=== PATIENT | female | born 1970 | race Caucasian/White ===

== ENCOUNTER 2023-11-02 21:43 | Emergency (ER) | payer OTHER, SELFPAY ==
[2023-11-02 22:08] VITALS: BP 199/126; PULSE 106; RESP 20; TEMP 36.8; O2SAT 99; BMI 30.2
--- NOTE | 2023-11-02 22:20 | ECG_ITS ---
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
[2023-11-02 22:24] VITALS: BP 182/90; PULSE 92; RESP 16; O2SAT 99
[2023-11-02 22:44] LABS: Basophils Absolute Auto 0.1 10^3/uL (0.0-0.1); Basophils Percent Auto 1.5 % (0.2-2.0); Eosinophils Absolute Auto 0.3 10^3/uL (0.0-0.7); Eosinophils Percent Auto 5.8 % (0.9-7.0); Hematocrit 43.2 % (36.0-48.0); Hemoglobin 14.4 g/dL (12.0-16.0); Immature Granulocytes Abs Auto 0.01 10^3/uL (0.00-0.03); Immature Granulocytes Pct Auto 0.2 % (0.0-0.5); Lymphocytes Absolute Auto 2.3 10^3/uL (1.2-3.8); Lymphocytes Percent Auto 39.1 % (20.5-60.0); Mean Corpuscular HGB Conc 33.3 g/dL (29.9-35.2); Mean Corpuscular Hemoglobin 30.5 pg (26.7-34.0); Mean Corpuscular Volume 91.5 fL (81.0-99.0); Monocytes Absolute Auto 0.4 10^3/uL (0.3-0.8); Neutrophils Absolute Auto 2.8 10^3/uL (1.4-6.5); Neutrophils Percent Auto 47.4 % (43.0-75.0); Platelet Count 303 10^3/uL (150-450); Red Blood Count 4.72 10^6/uL (4.20-5.40); Red Cell Distribution Width 12.6 % (11.0-15.0); White Blood Count 5.9 10^3/uL (4.0-11.0)
[2023-11-02] MEDS: LABETALOL HCL 20 MG/4 ML SYRINGE IVP (22:49)
[2023-11-02 22:51] LABS: Anion Gap 12.4; BUN Creatinine Ratio 19.6; Calcium 9.5 mg/dL (8.5-10.1); Carbon Dioxide 27.2 mmol/L (21.0-32.0); Chloride 102 mmol/L (98-107); Estimated GFR (African America >60 (>=60); Estimated GFR (Non-African Ame >60 (>=60); Glucose 105 mg/dL (74-106); Potassium 3.6 mmol/L (3.5-5.1); Sodium 138 mmol/L (136-145)
[2023-11-02 23:01] VITALS: BP 128/96; PULSE 79; RESP 19; O2SAT 96
[2023-11-02 23:23] VITALS: BP 133/87; PULSE 80; RESP 16
[2023-11-02 23:40] VITALS: BP 135/88; PULSE 79; RESP 14; O2SAT 97
--- NOTE | 2023-11-02 23:41 | ED.GENADUL1 ---
HPI - General Adult General Chief complaint: Headache Stated complaint: Hypertension Time Seen by Provider: 11/02/23 22:00 Source: patient Mode of arrival: walk-in Limitations: no limitations History of Present Illness HPI narrative: Over the last 2 weeks, the patient has been checking her BP at home and been getting high readings. She said that she started checking her BP at home because I just wasn't feeling right . She could not specify but mentioned that when her ZAINAB was found to be much more elevated tonight, she became very anxious and that seemed to make the BP rise even more. She does not take any prescribed meds so this would be new onset hypertension. She takes vitamin D and fish oil and asked me fi she should continue to take those. In our ED her BP is high and she still feels like something is off . Related Data Previous Rx's Medication Instructions Recorded lisinopril 10 mg tablet 10 mg PO DAILY #30 tabs 11/02/23 Allergies Allergy/AdvReac Type Severity Reaction Status Date / Time No Known Drug Allergies Allergy Verified 11/02/23 22:08 Exam Narrative Exam Narrative: Nurses notes and vital signs reviewed and patient is not hypoxic. Afebrile General: Well-appearing and in no apparent distress. Skin: Warm, dry, no pallor noted. Eye: Pupils are equal, round and EOMI. No scleral icterus. Cardiovascular: Regular Rate and Rhythm without murmur, gallop or rub. Respiratory: No accessory muscle use or respiratory distress. Lungs are clear to auscultation, no wheezing, rales or rhonchi Musculoskeletal: normal ROM, no calf or popliteal tenderness, no lower extremity edema/swelling Neurological: A&O x4. No cranial nerve dysfunction observed. No truncal ataxia. Moves all extremities. Sensation intact. Psychiatric: Cooperative and interactive. Normal mood and affect. Constitutional Vital Signs, click to edit/add: Last Vital Signs Temp 98.3 F 11/02/23 22:08 Pulse 79 11/02/23 23:40 Resp 14 11/02/23 23:40 BP 135/88 11/02/23 23:40 Pulse Ox 97 11/02/23 23:40 O2 Del Method Room Air 11/02/23 23:40 Course Vital Signs Vital signs: Vital Signs Temperature 98.3 F 11/02/23 22:08 Pulse Rate 106 H 11/02/23 22:08 Respiratory Rate 20 03/16/24 22:08 Blood Pressure 199/126 H 11/02/23 22:08 Pulse Oximetry 99 11/02/23 22:08 Oxygen Delivery Method Room Air 11/02/23 22:08 Temperature 98.3 F 11/02/23 22:08 Pulse Rate 79 11/02/23 23:40 Respiratory Rate 14 11/02/23 23:40 Blood Pressure 135/88 11/02/23 23:40 Pulse Oximetry 97 11/02/23 23:40 Oxygen Delivery Method Room Air 11/02/23 23:40 Medical Decision Making MDM Narrative Medical decision making narrative: Patient was placed on threat monitoring analyst and EKG obtained. Blood drawn and sent for evaluation. She was given IV labetalol for her hypertension. Blood pressure normalized after emergency department treatment. Aside from mildly elevated BUN, the patient's blood tests were unremarkable. EKG was normal. Patient was discharged home with prescription for lisinopril as she has noted hypertension for the last couple of weeks Patient courage to follow-up with her primary care provider for recheck. Emergency department return for any development of worrisome symptoms. I explained to her that over the next couple of weeks her blood pressure may continue to be labile and discouraged her from checking on a regular basis. Lab Data Lab results reviewed: Yes I reviewed the patient's lab results Labs: Lab Results 11/02/23 Range/Units 22:35 WBC 5.9 (4.0-11.0) 10^3/uL RBC 4.72 (4.20-5.40) 10^6/uL Hgb 14.4 (12.0-16.0) g/dL Hct 43.2 (36.0-48.0) % MCV 91.5 (81.0-99.0) fL MCH 30.5 (26.7-34.0) pg MCHC 33.3 (29.9-35.2) g/dL RDW 12.6 (11.0-15.0) % Plt Count 303 (150-450) 10^3/uL MPV 10.0 (9.5-13.5) fL Neut % (Auto) 47.4 (43.0-75.0) % Lymph % (Auto) 39.1 (20.5-60.0) % Davidson % (Auto) 6.0 (1.7-12.0) % Eos % (Auto) 5.8 (0.9-7.0) % Baso % (Auto) 1.5 (0.2-2.0) % Neut # (Auto) 2.8 (1.4-6.5) 10^3/uL Lymph # (Auto) 2.3 (1.2-3.8) 10^3/uL Davidson # (Auto) 0.4 (0.3-0.8) 10^3/uL Eos # (Auto) 0.3 (0.0-0.7) 10^3/uL Baso # (Auto) 0.1 (0.0-0.1) 10^3/uL Abs Immat Gran (auto) 0.01 (0.00-0.03) 10^3/uL Imm/Tot Granulo (auto) 0.2 (0.0-0.5) % Sodium 138 (136-145) mmol/L Potassium 3.6 (3.5-5.1) mmol/L Chloride 102 (98-107) mmol/L Carbon Dioxide 27.2 (21.0-32.0) mmol/L Anion Gap 12.4 BUN 19.0 H (7.0-18.0) mg/dL Creatinine 0.97 (0.55-1.02) mg/dL Est GFR ( Amer) >60 (>=60) Est GFR (Non-Af Amer) >60 (>=60) BUN/Creatinine Ratio 19.6 Glucose 105 (74-106) mg/dL Calcium 9.5 (8.5-10.1) mg/dL ECG Data Attestation: I personally reviewed and interpreted this ECG as follows: Interpretation: EKG interpretation: Emergency Department physician interpretation. Normal sinus rhythm at 85bpm. Normal axis, normal intervals and no ST segment elevation or depression. Normal EKG. Discharge Plan Discharge Stand Alone Forms: Portal Instructions Chief Complaint: Headache Clinical Impression: Hypertension Patient Disposition: Home, Self-Care Time of Disposition Decision: 23:43 Prescriptions / Home Meds: New lisinopril 10 mg tablet 10 mg PO DAILY Qty: 30 0RF Instructions: Hypertension (ED) Referrals: REJI FRANCO [Primary Care Provider] - 1 week
[2023-11-03 00:13] VITALS: BP 118/76; PULSE 82; RESP 18; O2SAT 95
== END 2023-11-03 00:16 | disposition home or self-care (01) ==
PROVIDERS: Emergency Provider Emergency Medicine; PCP Nurse Practitioner Family
DX: I10 Essential (primary) hypertension (principal); Z79.899 Other long term (current) drug therapy
CPT/HCPCS: 36415; 80048; 85025; 93005; 96374; 99285

== ENCOUNTER 2024-01-01 20:37 | Outpatient (REF) | payer OTHER, SELFPAY ==
--- OUTSIDE RECORDS SUMMARY | 2024-01-01 20:45 | XMS_ITS | CCD ---
Author Organization [facility] Care Team Providers Care Web Database Developer Name Role Phone SALVADOR, REJI Admitting Unavailable SALVADOR, REJI Attending Unavailable SALVADOR, REJI Primary Care Unavailable SALVADOR, REJI Consulting Unavailable MUNGUIA, LAINEY Consulting Unavailable SALVADOR, REJI Admitting Unavailable SALVADOR, REJI Attending Unavailable SALVADOR, REJI Primary Care Unavailable SALVADOR, REJI Primary Care Unavailable ABIGAIL ., KEVIN Admitting Unavailable ABIGAIL ., KEVIN Attending Unavailable MIGUELCHADALBERTO ., BENNETT SANDERS Consulting Unavailabl e BAEZ, MELANIE Consulting Unavailable KARASIK ., DR CORREIA Admitting Unavailabl e KARASIK ., DR CORREIA Attending Unavailabl e SALVADOR, REJI Primary Care Unavailable KARASIK ., DR CORREIA Consulting Unavailabl e ZIEBER, DR NIGEL Zaldivar Consulting Unavailable KARASIK ., DR CORREIA Admitting Unavailabl e KARASIK ., DR CORREIA Attending Unavailabl e SALVADOR, REJI Primary Care Unavailable KARASIK ., DR CORREIA Consulting Unavailabl e Problems Active Problems Problem Classification Problem Date Documented Date Episodic/Chronic Immunizations and screening for infectious disease (2 sources) Encounter for screening for human papillomavirus (HPV); Translations: [Encounter for immunization] Onset: 05-01-2022 Episodic Other screening for suspected conditions (not mental disorders or infectious disease) (8 sources) Encounter for screening mammogram for malignant neoplasm of breast; Translations: [Encounter for screening for malignant neoplasm of cervix] Onset: 08-15-2022 Episodic Past or Other Problems Problem Classification Problem Date Documented Da te Episodic/Chronic E Codes: Fall (1 source) Fall on same level from slipping, tripping and stumbling with subsequent striking against other object, initial encounter; Translations: [FALL SAME LVL SLIP STRK OTH OBJ INT] Onset: 05-01-2022 Episodic Other injuries and conditions due to external causes (4 sources) Other specified injuries of head, initial encounter; Translations: [OTH SPEC INJURIES HEAD INITIAL ENC] Onset: 04-27-2022 Episodic Other non-traumatic joint disorders (4 sources) Pain in right knee; Translations: [PAIN IN RIGHT KNEE] Onset: 12-29-2021 Episodic Superficial injury; contusion (2 sources) Abrasion of right eyelid and periocular area, initial encounter; Translations: [Contusion of right knee, initial encounter] Onset: 05-01-2022 Episodic Results Test Name Value Interpretation Reference Range Facil ity PAP ACOG PANEL 2: 30 to 65on 08-23-2022 . . Normal [facility] Comment on above: Result Comment: Performed at: BA Performed By: #### [id number] #### [facility] [address] [address] [address] Edi Muniz Age Gdln ACOG Testing 30-65 [facility] Comment on above: Performed By: #### [id number] #### [facility] [address] [address] [address] Edi Muniz DIAGNOSIS: Comment [facility] Comment on above: Result Comment: NEGATIVE FOR INTRAEPITHE LIAL LESION OR MALIGNANCY. Performed at: BA Performed By: #### [id number] #### [facility] [address] [address] [address] Edi Muniz HPV Aptima Negative Normal [facility] Comment on above: Result Comment: This nucleic acid amplif ication test detects fourteen high-risk HPV types (16,18,31,33,35,39,45,51,52,56,58,59,66,68) without differentiation. Performed at: =G Performed By: #### [id number] #### [facility] [address] [address] [address] Edi Muniz HPV Genotype Reflex Comment [facility] Comment on above: Result Comment: Criteria not met, HPV Ge notype not performed. Performed at: BA Performed By: #### [id number] #### [facility] [address] [address] [address] Edi Muniz Methodology: Comment Normal [facility] Comment on above: Result Comment: This liquid based ThinPr ep(R) pap test was screened with the use of an image guided system. Performed at: WB Performed By: #### [id number] #### [facility] [address] [place] [address] Dr. Edi Muniz Note: Comment Normal [facility] Comment on above: Result Comment: The Pap smear is a scree juliette test designed to aid in the detection of premalignant and malignant conditions of the uterine cervix. It is not a diagnostic procedure and should not be used as the sole means of detecting cervical cancer. Both false-positive and false-negative reports do occur. . Performed at: WB Performed By: #### [id number] #### [facility] [address] [place] [address] Dr. Edi Muniz Performed by: Comment Normal [facility] Comment on above: Result Comment: Vi Richards, Cytot echnologist (ASCP) Performed at: BA Performed By: #### [id number] #### [facility] [address] [place] [address] Dr. Edi Muniz Specimen adequacy: Comment Normal [facility] Comment on above: Result Comment: Satisfactory for evaluat ion. No endocervical component is identified. Performed at: BA Performed By: #### [id number] #### [facility] [address] [place] [address] Dr. Edi Muniz MG MAMM SCREEN 3D WATSON CADon 08-21-2022 MG MAMM SCREEN 3D WATSON CAD Patient: FRITZ GREEN Exam Date: 08/21/2022 : 1970 Gender:F Ordering : DR BREN MELLO . Admission #: [id number] Family : Order #: [id number] CLICK HERE TO VIEW EXAM RADIOLOGY REPORT PROCEDURE: MAMMOGRAM SCREENING 3D BILATERAL CAD COMPARISON: MG MAMM SCREEN WATSON W CAD, 08/17/2020. MG MAMM SCREEN WATSON W CAD, 06/30/2019. DIGITIZED_MAMMO, 08/13/2008. MG MAMM SCREEN 3D WATSON CAD, 08/18/2021. INDICATIONS: Screening for malignant neoplasm of breast Calculator Name NCI Breast Cancer Risk Assessment Tool 5 Year Breast Cancer Risk 1.20% Lifetime Breast Cancer Risk 9.60% Personal Breast Cancer No Personal Ovarian Cancer No Treatments None Family Cancers None LOCATION: [facility] BREAST COMPOSITION: Scattered areas fibroglandular density. FINDINGS: DIAGNOSTIC CATEGORY 1--NEGATIVE. RIGHT BREAST: No significant suspicious finding. No significant change has occurred. LEFT BREAST: No significant suspicious finding. No significant change has occurred. RECOMMENDATIONS: ROUTINE MAMMOGRAM AND CLINICAL EVALUATION IN 12 MONTHS. PLEASE NOTE: A NORMAL MAMMOGRAM DOES NOT EXCLUDE THE POSSIBILITY OF BREAST CANCER. A CLINICALLY SUSPICIOUS PALPABLE LUMP SHOULD BE BIOPSIED. Dictated by: Nigel Klein M.D. on 08/23/2022 at 08:29 Approved by: Nigel Klein M.D. on 08/23/2022 at 08:32 Normal [facility] CT HEAD WO CONon 04-27-2022 CT HEAD WO CON EXAMINATION: CT HEAD WO CON HISTORY: Head injury with abrasions. TECHNIQUE: Axial CT scans through the head were obtained without IV contrast administration. Dose reduction techniques were achieved by using: automated exposure control and/or adjustment of mA and /or kV according to patient size and/or use of iterative reconstruction technique. COMPARISON: None. FINDINGS: The cerebral hemispheres have normal white and ruiz matter and corticomedullary differentiation. To the limit of CT, the posterior fossa appears unremarkable. The ventricular system is slightly prominent, secondary to mild cerebral volume loss. No depressed skull fracture. No area of abnormal mass-effect or edema or intracranial hemorrhage. The visualized orbits show no gross mass. The visualized paranasal sinuses show no air-fluid level. Mastoid air cells are clear. IMPRESSION: No acute intracranial process. Mild cerebral volume loss. Electronically authenticated by: MELANIE BAEZ Date: 2022-04-27 20:34 Normal [facility] XR KNEE RT 4V or >on 022 XR KNEE RT 4V or > EXAM: XR KNEE RT 4V or > Knee examination rt Findings: There is narrowing of the medial compartment of the knee, as well as the patellofemoral joint. Osteophyte formation is seen. No acute fracture is identified. No focal lesions are identified. IMPRESSION: Degenerative changes are noted at the knee. No fracture, is seen. If there is high index of suspicion, consider MRI. Electronically authenticated by: LAINEY MUNGUIA Date: 2021-12-22 16:55 Normal [facility] Encounters Encounter Date Encounter Type Care Provider Facility Start: 08-21-2022 End: 08-22-[address] BREN MELLO . Facility:[facility] Start: 08-15-2022 End: 08-15-[address] BREN MELLO . Facility:[facility] Start: 04-27-2022 End: 04-27-2022 ambulatory REJI FRANCO Facility:[facility] Start: 12-29-2021 End: 03-03-2022 ambulatory REJI FRANCO Facility:[facility] Start: 12-22-2021 End: 12-23-2021 ambulatory REJI FRANCO Facility:[facility] Payers Date Payer Category Payer Unknown [id number] 2.16.84 [id number] 1970 Unknown [id number] 2.16.84 [id number] 1970 Unknown [id number] 2.16.84 [id number] 1970 Unknown [id number] 2.16.84 [id number] 1970 Unknown [id number] 2.16.84 [id number] 1959 Private Health Insurance [id number] Private Health Insurance [id number] Summary Purpose Family History No Family History Records Found Advance Directives No Advanced Directives Records Found Additional Source Comments INFORMATION SOURCE (unrecogn ized section and content) DATE CREATED AUTHOR 10/13/2022 The [facility] FOR RECORDS PERTAINING TO PATIENTS WHO ARE OR HAVE BEEN ENROLLED IN A CHEMICAL DEPENDENCY/SUBSTANCEABUSE PROGRAM, SOME INFORMATION MAY BE OMITTED. This clinical summary was aggregated from multiple sources. Caution should be exercised in using it in the provision of clinical care. This summary normalizes information from multiple sources, and as a consequence, information in this document may materially change the coding, format and clinical context of patient data. In addition, data may be omitted in some cases. CLINICAL DECISIONS SHOULD BE BASED ON THE PRIMARY CLINICAL RECORDS. [facility]. provides no warranty or guarantee of the accuracy or completeness of information in this document.
[2024-01-06 21:13] LABS: Age Gdln ACOG Testing Note (.); HPV Aptima Negative (Negative); IGP, Aptima HPV, rfx 16/18,45 Note (.)
== END 2024-01-01 20:38 | disposition home or self-care (01) ==
LOC: LAB 20:37
PROVIDERS: PCP Nurse Practitioner Family; Visit Provider Physician Assistant
DX: Z01.419 Encounter for gynecological examination (general) (routine) without abnormal findings (principal)
CPT/HCPCS: 87624; G0145

== ENCOUNTER 2024-01-27 07:22 | Outpatient (OUT) | payer OTHER, SELFPAY ==
--- NOTE | 2024-01-27 | MM_ITS ---
Patient Name: FRITZ GREEN MR#: [id number] : 1970 Exam Date: 01/27/2024 Ordering Doctor: DR Kevin South . RADIOLOGY REPORT PROCEDURE: MM TOMOSYNTHESIS SCREENING BI COMPARISON: MG MAMM SCREEN 3D WATSON CAD, 08/18/2021. MG MAMM SCREEN 3D WATSON CAD, 08/21/2022. INDICATIONS: Screening for malignancy of breasts Calculator Name NCI Breast Cancer Risk Assessment Tool 5 Year Breast Cancer Risk 1.20% Lifetime Breast Cancer Risk 9.40% Personal Breast Cancer No Personal Ovarian Cancer No Treatments None Family Cancers None LOCATION: [facility] BREAST COMPOSITION: There are scattered areas of fibroglandular density. FINDINGS: DIAGNOSTIC CATEGORY 1--NEGATIVE. NO CHANGE FROM COMPARISON ASSESSMENT. Scattered benign-appearing lymph nodes are present. RIGHT BREAST: No significant suspicious finding. LEFT BREAST: No significant suspicious finding. RECOMMENDATIONS: ROUTINE MAMMOGRAM AND CLINICAL EVALUATION IN 12 MONTHS. PLEASE NOTE: A NORMAL MAMMOGRAM DOES NOT EXCLUDE THE POSSIBILITY OF BREAST CANCER. A CLINICALLY SUSPICIOUS PALPABLE LUMP SHOULD BE BIOPSIED. Dictated by: Ventura Jang MD on 01/27/2024 at 11:26 Approved by: Ventura Jang MD on 01/27/2024 at 11:27
--- OUTSIDE RECORDS SUMMARY | 2024-01-27 07:24 | XMS_ITS | CCD ---
Author Organization [facility] Care Team Providers Care Clay Shop Supervisor Name Role Phone REJI FRANCO Admitting Unavailable SALVADOR, REJI Attending Unavailable SALVADOR, REJI Primary Care Unavailable SALVADOR, REJI Consulting Unavailable LAINEY MUNGUIA Consulting Unavailable SALVADOR, REJI Admitting Unavailable SALVADOR, REJI Attending Unavailable SALVADOR, REJI Primary Care Unavailable SALVADOR, REJI Primary Care Unavailable ABIGAIL ., KEVIN Admitting Unavailable ABIGAIL ., KEVIN Attending Unavailable RAMON ., BENNETT SANDERS Consulting Unavailabl e BAEZMELANIE Consulting Unavailable KARASIK ., DR CORREIA Admitting Unavailabl e KARASIK ., DR CORREIA Attending Unavailabl e SALVADOR, REJI Primary Care Unavailable KARASIK ., DR CORREIA Consulting Unavailabl e ZIEBHAI, DR NIGEL Zaldivar Consulting Unavailable KARASIK ., DR CORREIA Admitting Unavailabl e KARASIK ., DR CORREIA Attending Unavailabl e SALVADOR, REJI Primary Care Unavailable KARASIK ., DR CORREIA Consulting Unavailabl e ELLIOTT STEARNS Attending Unavailable CARLI QUINTERO Attending Unavailable Problems Active Problems Problem Classification Problem Date [...] 30 to 65on 08-23-2022 . . Normal [facility] Comment on above: Result Comment: Performed at: BA Performed By: #### [id number] #### [facility] [address] [address] [address] Edi Muniz Age Gdln ACOG Testing 30-65 Normal [facility] Comment on above: Performed By: #### [id number] #### [facility] [address] [address] [address] Edi Muniz DIAGNOSIS: Comment Normal [facility] Comment on above: Result Comment: NEGATIVE FOR INTRAEPITHE LIAL LESION OR MALIGNANCY. Performed at: BA Performed By: #### [id number] #### [facility] [address] [address] [address] Edi Muniz HPV Aptima Negative Normal Negative [facility] Comment on above: Result Comment: This nucleic acid amplif ication test detects fourteen high-risk HPV types (16,18,31,33,35,39,45,51,52,56,58,59,66,68) without differentiation. Performed at: =G Performed By: #### [id number] #### [facility] [address] [address] [address] Edi Muniz HPV Genotype Reflex Comment Normal [facility] Comment on above: Result Comment: Criteria not met, HPV Ge notype not performed. Performed at: BA Performed By: #### [id number] #### [facility] [address] [address] [address] Edi Muniz Methodology: Comment Normal [facility] Comment on above: Result Comment: This liquid based ThinPr ep(R) pap test was screened with the use of an image guided system. Performed at: WB Performed By: #### [id number] #### [facility] [address] [place] [address] Dr. Edi Muniz Note: Comment Normal [facility] Comment on above: Result Comment: The Pap smear is a scree juliette test designed to aid in the detection of premalignant and malignant conditions of the uterine cervix. It is not a diagnostic procedure and should not be used as the sole means of detecting cervical cancer. Both false-positive and false-negative reports do occur. . Performed at: WB Performed By: #### [id number] #### [facility] [address] [place] [address] Dr. Edi Muniz Performed by: Comment Normal [facility] Comment on above: Result Comment: Vi Richards, Cytot echnologist (ASCP) Performed at: BA Performed By: #### [id number] #### [facility] [address] [place] [address] Dr. Edi Muniz Specimen adequacy: Comment Normal [facility] Comment on above: Result Comment: Satisfactory for evaluat ion. No endocervical component is identified. Performed at: BA Performed By: #### [id number] #### [facility] [address] [place] [address] Dr. Edi Muniz MG MAMM SCREEN 3D WATSON CADon 08-21-2022 MG MAMM SCREEN 3D WATSON CAD Patient: FRITZ GREEN Exam Date: 08/21/2022 : 1970 Gender:F Ordering : DR BREN MELLO . Admission #: [id number] Family : Order #: [id number] CLICK HERE TO VIEW EXAM RADIOLOGY REPORT [...] Treatments None Family Cancers None LOCATION: [facility] BREAST COMPOSITION: Scattered areas fibroglandular density. FINDINGS: [...] Klein M.D. on 08/23/2022 at 08:32 Normal [facility] CT HEAD WO CONon 04-27-2022 CT [...] MELANIE BAEZ Date: 2022-04-27 20:34 Normal [facility] XR KNEE RT 4V or >on 022 [...] by: LAINEY MUNGUIA Date: 2021-12-22 16:55 Normal [facility] Encounters Encounter Date Encounter Type Care Provider Facility Start: 01-01-2024 End: 01-01-2024 ambulatory ELLIOTT STEARNS Not Available Start: 08-06-2023 End: 08-06-2023 ambulatory CARLI Tavera QUINTERO Not Available Start: 08-21-2022 End: 08-22-[address] BREN MELLO . Facility:[facility] Start: 08-15-2022 End: 08-15-[address] BREN MELLO . Facility:[facility] Start: 04-27-2022 End: 04-27-2022 ambulatory REJI FRANCO Facility:[facility] Start: 12-29-2021 End: 03-03-2022 ambulatory REJI FRANCO Facility:[facility] Start: 12-22-2021 End: 12-23-2021 ambulatory REJI FRANCO Facility:[facility] Payers Date Payer Category Payer Private Health Insurance [id number] 1970 Unknown [id number] 2.16.84 [id number] 1970 Unknown [id number] 2.16.84 [id number] 1970 Unknown [id number] 2.16.84 [id number] 1970 Unknown [id number] 2.16.84 [id number] 1970 Unknown [id number] 2.16.84 [id number] 1970 Unknown [id number] 2.16.84 [id number] 1970 Unknown [id number] 1959 Private Health Insurance [id number] 1959 Private Health Insurance [id number] Summary Purpose Family History No Family History Records FoundNo Family History Records Found Advance Directives No Advanced Directives Records FoundNo Advanced Directives Records Found Additional Source Comments INFORMATION SOURCE (unrecogn ized section and content) DATE CREATED AUTHOR 10/13/2022 [facility] DATE CREATED AUTHOR AUTHOR'S SHANON ATDANTE 01/03/2024 [facility] [employer] FOR RECORDS PERTAINING TO PATIENTS WHO ARE [...] BE BASED ON THE PRIMARY CLINICAL RECORDS. [employer] provides no warranty or guarantee of the accuracy or completeness of information in this document.
--- NOTE | 2024-01-27 07:48 | XR_ITS ---
[address] [address] Patient Name: FRITZ GREEN MRN: [id number] date: 1970 Sex: F Assigned Patient Location: [facility] Current Patient Location: [facility] Accession/Order Number: [id number] Exam Date: 01/27/2024 07:48 Report Date: 01/27/2024 08:07 At the request of: URI SINGH Procedure: XR DEXA axial skeleton EXAMINATION: XR DEXA axial skeleton, 01/27/2024 7:48 AM EDT HISTORY: Osteoporosis COMPARISON: 2020 TECHNIQUE: Dual-energy X-ray absorptiometry (DEXA) bone density study performed for the axial skeleton. HISTORY: Osteoporosis FINDINGS: Bone mineral density AP spine L1-L4 measures 1.377 g/sq cm. T score 1.6. WHO classification: Normal. 3.5% reduction from the prior exam Lowest bone mineral densities in the left femoral neck measuring 0.865 g/sq cm. T score -1.2. WHO classification: Osteopenia XR/XR DEXA axial skeleton IMPRESSION: Physiologic reduction in bone mineral density from 2020 Osteopenia. Moderate fracture risk Electronically authenticated by: TAISHA MANRIQUEZ Date: 01/27/2024 08:07
== END 2024-01-27 07:23 | disposition home or self-care (01) ==
LOC: MAMMO 07:22
PROVIDERS: PCP Nurse Practitioner Family; Visit Provider Obstetrics & Gynecology
DX: Z12.31 Encounter for screening mammogram for malignant neoplasm of breast (principal); M81.0 Age-related osteoporosis without current pathological fracture; M85.80 Other specified disorders of bone density and structure, unspecified site
CPT/HCPCS: 77063; 77067; 77080

== ENCOUNTER 2024-05-25 13:00 | Outpatient (OUT) | payer OTHER, SELFPAY ==
--- OUTSIDE RECORDS SUMMARY | 2024-05-26 10:45 | XMS_ITS | CCD ---
Author Organization [facility] Inform ion [facility] Care Team Providers Care Park Naturalist Name Role Phone REJI FRANCO Admitting Unavailable SALVADOR, REJI Attending Unavailable SALVADOR, REJI Primary Care Unavailable SALVADOR, REJI Consulting Unavailable LAINEY MUNGUIA Consulting Unavailable SALVADOR, REJI Admitting Unavailable SALVADOR, REJI Attending Unavailable SALVADOR, REJI Primary Care Unavailable SALVADOR, REJI Primary Care Unavailable ABIGAIL ., KEVIN Admitting Unavailable ABIGAIL ., KEVIN Attending Unavailable RAMON ., BENNETT SANDERS Consulting Unavailabl e BAEZ, [...] KARASIK ., DR CORREIA Consulting Unavailabl e JINNYELLIOTT DUBON Attending Unavailable CARLI QUINTERO Attending Unavailable Problems [...] 30 to 65on 08-23-2022 . . Normal [facility] Comment on above: Result Comment: Performed at: BA Performed By: #### [id number] #### [facility] [address] [address] [address] Edi Muniz Age Gdln ACOG Testing 30-65 Normal [facility] Comment on above: Performed By: #### [id number] #### [facility] [address] [address] [address] Edi Muniz DIAGNOSIS: Comment Normal [facility] Comment on above: Result Comment: NEGATIVE FOR INTRAEPITHE LIAL LESION OR MALIGNANCY. Performed at: BA Performed By: #### [id number] #### [facility] [address] [address] [address] Edi Muniz HPV Aptima Negative Normal Negative [facility] Comment on above: Result Comment: This nucleic acid amplif ication test detects fourteen high-risk HPV types (16,18,31,33,35,39,45,51,52,56,58,59,66,68) without differentiation. Performed at: =G Performed By: #### [id number] #### [facility] [address] [address] [address] Edi Muniz HPV Genotype Reflex Comment [facility] Comment on above: Result Comment: Criteria not met, HPV Ge notype not performed. Performed at: BA Performed By: #### 4 [id number] #### [facility] [address] [address] [address] Edi Muniz Methodology: Comment Normal [facility] Comment on above: Result Comment: This liquid based ThinPr ep(R) pap test was screened with the use of an image guided system. Performed at: WB Performed By: #### [id number] #### [facility] [address] [place] [address] Dr. Edi Muniz Note: Comment Normal [facility] Comment on above: Result Comment: The Pap smear is a scree juliette test designed to aid in the detection of premalignant and malignant conditions of the uterine cervix. It is not a diagnostic procedure and should not be used as the sole means of detecting cervical cancer. Both false-positive and false-negative reports do occur. . Performed at: WB Performed By: #### [id number] #### [facility] [address] [place] [address] Dr. Edi Muniz Performed by: Comment Normal [facility] Comment on above: Result Comment: Vi Richards, Cytot echnologist (ASCP) Performed at: BA Performed By: #### [id number] #### [facility] [address] [place] [address] Dr. Edi Muniz Specimen adequacy: Comment Normal [facility] Comment on above: Result Comment: Satisfactory for evaluat ion. No endocervical component is identified. Performed at: BA Performed By: #### [id number] #### [facility] [address] [place] [address] Dr. Edi Muniz MG MAMM SCREEN 3D WATSON CADon 08-21-2022 MG MAMM SCREEN 3D WATSON CAD Patient: FRITZ GREEN Exam Date: 08/21/2022 : 1970 Gender:F Ordering : DR BREN MELLO . Admission #: [id number] Family : Order #: [id number] CLICK HERE TO VIEW EXAM RADIOLOGY REPORT [...] Treatments None Family Cancers None LOCATION: [facility] BREAST COMPOSITION: Scattered areas fibroglandular [...] Klein M.D. on 08/23/2022 at 08:32 Normal [facility] CT HEAD WO CONon 04-27-2022 CT HEAD [...] MELANIE BAEZ Date: 2022-04-27 20:34 Normal [facility] XR KNEE RT 4V or [...] by: LAINEY MUNGUIA Date: 2021-12-22 16:55 Normal [facility] Encounters Encounter Date Encounter Type Care Provider [...] Payer Category Payer Private Health Insurance [id number] 1970 Unknown [id number] 2.16.84 [id number] 1970 Unknown [id number] 2.16.84 0.1.356461.3.579.2.593 1970 Unknown [id number] 2.16.84 0.1.327717.3.579.2.593 1970 Unknown [id number] 2.16.84 0.1.317025.3.579.2.593 1970 Unknown [id number] 2.16.84 0.1.308075.3.579.2.593 1970 Unknown [id number] 2.16.84 0.1.014341.3.579.2.1259 1970 Unknown [id number] 2.16.840 .[id number] 1959 Private Health Insurance [id number] 1959 Private Health Insurance [id number] Summary Purpose Family History No Family History Records FoundNo Family History Records Found Advance Directives No Advanced Directives Records FoundNo Advanced Directives Records Found Additional Source Comments INFORMATION SOURCE (unrecogn ized section and content) DATE CREATED AUTHOR 10/13/2022 [employer] DATE CREATED AUTHOR AUTHOR'S SHANON ROMERO 01/03/2024 [facility] EPIC FOR RECORDS PERTAINING [...] BE BASED ON THE PRIMARY CLINICAL RECORDS. [employer] provides no warranty or guarantee of the accuracy or completeness of information in this document.
--- OUTSIDE RECORDS SUMMARY | 2024-05-26 10:46 | XMS_ITS | CCD ---
Author Organization [facility] Inform ion [facility] Care Team Providers Care Customer Business Manager Name Role Phone REJI FRANCO Admitting Unavailable [...] Performed at: BA Performed By: #### [id number] #### [facility] [address] [address] [address] Edi Muniz Age Gdln ACOG Testing 30-65 Normal [facility] Comment on above: Performed By: #### [id number] #### [facility] [address] [address] [address] Edi Muniz DIAGNOSIS: Comment Normal [facility] Comment on above: Result Comment: NEGATIVE FOR INTRAEPITHE LIAL LESION OR MALIGNANCY. Performed at: BA Performed By: #### [id number] #### [facility] [address] [address] [address] Edi Muniz HPV Aptima Negative Normal Negative [facility] Comment on above: Result Comment: This nucleic acid amplif ication test detects fourteen high-risk HPV types (16,18,31,33,35,39,45,51,52,56,58,59,66,68) without differentiation. Performed at: =G Performed By: #### 4 [id number] #### [facility] [address] [address] [address] Edi Muniz HPV Genotype Reflex Comment [facility] Comment on above: Result Comment: Criteria not met, HPV Ge notype not performed. Performed at: BA Performed By: #### 4 [id number] #### [facility] [address] [address] [address] Edi Muniz Methodology: Comment Normal [facility] Comment on above: Result Comment: This liquid based ThinPr ep(R) pap test was screened with the use of an image guided system. Performed at: WB Performed By: #### 4 [id number] #### [facility] [address] [place] [address] Dr. Edi Muniz Note: Comment Normal [place] [...] Performed at: WB Performed By: #### 4 [id number] #### [facility] [address] [place] [address] Dr. Edi Muniz Performed by: Comment Normal [facility] Comment on above: Result Comment: Vi Richards, Cytot echnologist (ASCP) Performed at: BA Performed By: #### 4 [id number] #### [facility] [address] [place] [address] Dr. Edi Muniz Specimen adequacy: Comment Normal [facility] Comment on above: Result Comment: Satisfactory for evaluat ion. No endocervical component is identified. Performed at: BA Performed By: #### 4 [id number] #### [facility] [address] [place] [address] Dr. Edi Muniz MG MAMM SCREEN 3D WATSON CADon 08-21-2022 MG MAMM SCREEN 3D WATSON CAD Patient: FRITZ GREEN Exam Date: 08/21/2022 : 1970 Gender:F Ordering : DR BREN MELLO . Admission #: [id number] Family : Order #: [id number] CLICK HERE TO VIEW EXAM RADIOLOGY REPORT [...] Treatments None Family Cancers None LOCATION: [facility] BREAST COMPOSITION: Scattered areas fibroglandular density. [...] MELANIE BAEZ Date: 2022-04-27 20:34 Normal [facility] XR KNEE RT 4V or >on [...] Payer Category Payer Private Health Insurance [id number] 1970 Unknown [id number] 2.16.84 0.1.443517.3.579.2.593 1970 Unknown [id number] 2.16.84 0.1.759563.3.579.2.593 1970 Unknown [id number] 2.16.84 0.1.197866.3.579.2.593 1970 Unknown [id number] 2.16.84 0.1.716350.3.579.2.593 1970 Unknown [id number] 2.16.84 0.1.607792.3.579.2.593 1970 Unknown [id number] 2.16.84 0.1.064303.3.579.2.1259 1970 Unknown [id number] 2.16.840 .1.456220.3.579.2.1259 1959 Private Health Insurance [id number] 1959 Private Health Insurance [id number] Summary Purpose Family History No Family History Records FoundNo Family History Records Found Advance Directives No Advanced Directives Records FoundNo Advanced Directives Records Found Additional Source Comments INFORMATION SOURCE (unrecogn ized section and content) DATE CREATED AUTHOR 10/13/2022 [employer] DATE CREATED AUTHOR AUTHOR'S SHANON ROMERO 01/03/2024 [facility] EPIC FOR RECORDS PERTAINING [...] BE BASED ON THE PRIMARY CLINICAL RECORDS. [employer] provides no warranty or guarantee of the accuracy or completeness of information in this document.
== END 2024-05-25 13:01 | disposition home or self-care (01) ==
LOC: SLEEP 05-26 10:42
PROVIDERS: PCP Internal Medicine; Visit Provider Internal Medicine
DX: G47.33 Obstructive sleep apnea (adult) (pediatric) (principal); G47.11 Idiopathic hypersomnia with long sleep time
CPT/HCPCS: 95806

== ENCOUNTER 2024-06-30 19:56 | Outpatient (OUT) | payer OTHER, SELFPAY ==
--- OUTSIDE RECORDS SUMMARY | 2024-06-30 19:58 | XMS_ITS | CCD ---
Author Organization [facility] Inform ion [facility] Care Team Providers Care Drywall Foreman Name Role Phone REJI FRANCO Admitting Unavailable [...] 30 to 65on 08-23-2022 . . Normal [facility] Comment on above: Result Comment: Performed at: BA Performed By: #### [id number] #### [facility] [address] [address] [address] Edi Muniz Age Gdln ACOG Testing 30-65 Normal [facility] Comment on above: Performed By: #### [id number] #### [facility] [address] [address] [address] Edi Muniz DIAGNOSIS: Comment Normal [facility] Comment on above: Result Comment: NEGATIVE FOR INTRAEPITHE LIAL LESION OR MALIGNANCY. Performed at: BA Performed By: #### 4 [id number] #### [facility] [address] [address] [address] Edi Muniz HPV Aptima Negative Normal Negative [facility] Comment on above: Result Comment: This nucleic acid amplif ication test detects fourteen high-risk HPV types (16,18,31,33,35,39,45,51,52,56,58,59,66,68) without differentiation. Performed at: =G Performed By: #### 4 [id number] #### [facility] [address] [address] [address] Edi Muniz HPV Genotype Reflex Comment [facility] Comment on above: Result Comment: Criteria not met, HPV Ge notype not performed. Performed at: BA Performed By: #### 4 [id number] #### [facility] [address] [address] [address] Edi Muinz Methodology: Comment Normal [facility] Comment on above: Result Comment: This liquid based ThinPr ep(R) pap test was screened with the use of an image guided system. Performed at: WB Performed By: #### 4 [id number] #### [facility] [address] [place] [address] Dr. Edi Muniz Note: Comment Normal [facility] Comment on above: Result Comment: The Pap smear is a scree juliette test designed to aid in the detection of premalignant and malignant conditions of the uterine cervix. It is not a diagnostic procedure and should not be used as the sole means of detecting cervical cancer. Both false-positive and false-negative reports do occur. . Performed at: WB Performed By: #### 4 [id number] #### [facility] [address] [place] [address] Dr. Edi Muniz Performed by: Comment Normal [facility] Comment on above: Result Comment: Vi Richards, Cytot echnologist (ASCP) Performed at: BA Performed By: #### 4 [id number] #### [facility] [address] [place] [address] Dr. Edi Muniz Specimen adequacy: Comment Normal [facility] Comment on above: Result Comment: Satisfactory for evaluat ion. No endocervical component is identified. Performed at: BA Performed By: #### 4 [id number] #### [facility] [address] [place] [address] Dr. Edi Muniz MG MAMM SCREEN 3D WATSON CADon 08-21-2022 MG MAMM SCREEN 3D WATSON CAD Patient: FRITZ GREEN Exam Date: 08/21/2022 : 1970 Gender:F Ordering : DR BREN MELLO . Admission #: [id number] Family : Order #: [id number] CLICK HERE TO VIEW EXAM RADIOLOGY REPORT [...] Treatments None Family Cancers None LOCATION: [facility] BREAST COMPOSITION: Scattered areas fibroglandular density. FINDINGS: [...] Klein M.D. on 08/23/2022 at 08:32 Normal [facility] [address] HEAD WO CONon 04-27-2022 CT [...] MELANIE BAEZ Date: 2022-04-27 20:34 Normal [facility] XR KNEE RT 4V or >on 022 [...] by: LAINEY MUNGUIA Date: 2021-12-22 16:55 Normal [facility] Encounters Encounter Date Encounter Type Care [...] Payer Category Payer Private Health Insurance [id number] 1970 Unknown [id number] 2.16.84 0.1.047098.3.579.2.593 1970 Unknown [id number] 2.16.84 0.1.574937.3.579.2.593 1970 Unknown [id number] 2.16.84 0.1.919762.3.579.2.593 1970 Unknown [id number] 2.16.84 0.1.396376.3.579.2.593 1970 Unknown [id number] 2.16.84 0.1.582694.3.579.2.593 1970 Unknown [id number] 2.16.84 0.1.112939.3.579.2.1259 1970 Unknown [id number] 2.16.840 .1.595370.3.579.2.1259 1959 Private Health Insurance [id number] 1959 Private Health Insurance [id number] Summary Purpose Family History No Family History Records FoundNo Family History Records Found Advance Directives No Advanced Directives Records FoundNo Advanced Directives Records Found Additional Source Comments INFORMATION SOURCE (unrecogn ized section and content) DATE CREATED AUTHOR 10/13/2022 [employer] DATE CREATED AUTHOR AUTHOR'S SHANON ROMERO 01/03/2024 [facility] EPIC FOR RECORDS PERTAINING [...] BE BASED ON THE PRIMARY CLINICAL RECORDS. [employer] provides no warranty or guarantee of the accuracy or completeness of information in this document.
== END 2024-06-30 19:57 | disposition home or self-care (01) ==
LOC: SLEEP 19:56
PROVIDERS: PCP Internal Medicine; Visit Provider Internal Medicine
DX: G47.33 Obstructive sleep apnea (adult) (pediatric) (principal)
CPT/HCPCS: 95811

== ENCOUNTER 2025-01-05 19:07 | Outpatient (REF) | payer SELFPAY ==
--- OUTSIDE RECORDS SUMMARY | 2024-07-08 11:30 | XMS_ITS ---
Author Organization [facility] [place] Address [address] [place] [address] Care Team Providers Care Basketball Player Name Role Phone Sharan Hummel Primary Care Provider [phone] Mai Juan Jose Unavailable [phone] REASON FOR VISIT 3 mos f/u KIM/PSG Encounters Encounter Location Date Provider Diagnosis [facility] [place] [address] [place] [address] 07/08/2024 Juan Jose Oneill Plan Of Treatment Next Appt Details Provider Name:Juan Jose Oneill, 08/24/2025 04:30:00 PM, [address] [place], [address], Progress Notes * Yaquelin KAUROB:1970 ( 54 yo F)Acc No.[id number]:07/08/2024 UNLOCKED PROGRESS NOTE Follow Up Patient: Chante ACUNA Provider: Aimee Oneill DO :1970 A ge:54 Y S ex:Female Date:07/08/2024 Address:[address] [place] [id number] Pcp:Sharan Hummel Subjective: * Chief Complaints: * 1 . 3 mos f/u KIM/PSG. * Medical History: Objective: * Vitals: Assessment: Plan: * Treatment: * * Electronic signature of Margarita Oneill DO on 01/05/2025 at 02:39 PM EDT Sign off status: Pending Visit Status: R /S (Rescheduled) * Provider: Aimee Oneill, Date: 1 09/07/2023 Generated for Ruth tuttle/Bang/Antitting on: 0 01/05/2025 02:39 PM EDT
--- OUTSIDE RECORDS SUMMARY | 2025-01-05 07:00 | XMS_ITS ---
Author Organization [facility] in [place] Address [address] [facility] [place] [address] Care Team Providers Care Chief Digital Media Officer Name Role Phone Sharan Hummel Primary Care Provider [phone] Merle Scruggs [phone] REASON FOR VISIT wellness Encounters Encounter Location Date Provider Diagnosis [facility] [address] [place] [address] 01/05/2025 Merle Weeks Plan Of Treatment Next Appt Details Provider Name:Juan Jose Oneill, 08/24/2025 04:30:00 PM, [address] [place], [address], Progress Notes * Yaquelin KAUROB:1970 ( 54 yo F)Acc No.[id number]:01/05/2025 UNLOCKED PROGRESS NOTE Progress Note Patient: Chante ACUNA Provider: Berta Weeks ([facility]), SUPERVISOR SLASHING DEPARTMENT :1970 A ge:54 Y S ex:Female Date:01/05/2025 Address:[address] [place] [address] Pcp:Sharan Hummel Subjective: * Chief Complaints: * 1 . Wellness. * Medical History: Objective: * Vitals: Assessment: Plan: * Treatment: * * Electronic signature of Jackie Mercado NP, TIRE FABRIC IMPREGNATING RANGE TENDER.SUPERVISOR SLASHING DEPARTMENT.[id number] on 01/05/2025 at 02:39 PM EDT Sign off status: Pending Visit Status: C ANC (Cancelled) * Provider: Berta Weeks ([facility]), SUPERVISOR SLASHING DEPARTMENT Date: 0 01/05/2025 Generated for Ruth tuttle/Bang/Too on: 0 01/05/2025 02:39 PM EDT
--- OUTSIDE RECORDS SUMMARY | 2025-01-05 19:10 | XMS_ITS | Patient Health Record ---
Author Organization The [facility] in [place] Address [address] [place] [address] Care Team Providers Care Commercial Construction Estimator Name Role Phone Sharan Hummel Primary Care Provider Juan Jose Oneill Unavailable [phone] Merle Weeks Unavailable [phone] Allergies No Known Allergies Results Component Value Reference Range Notes MM tomosynthesis screening B I Reviewed date:01/27/2024 01:34:35 PM Interpretation: Performing Lab: Notes/Report: Source Facility: [address] [address] Mammography Report Signed Patient: CHANTE KAUR MR#: [id number] : 1970 Acct:[id number] Age/Sex: 53 / F ADM Date: 01/27/24 Loc: MAMMO Attending Dr: Uri South D.O. Ordering Physician: Uri South D.O. Results: Date of Service: 01/27/24 Follow Up: Procedure(s): MM tomosynthesis screening BI Accession Number(s): [id number] cc: MERLE WEEKS ; Uri South D.O. Patient Name: CHANTE KAUR MR#: [id number] : 1970 Exam Date: 01/27/2024 Ordering Doctor: DR Uri South . RADIOLOGY REPORT PROCEDURE: MM TOMOSYNTHESIS SCREENING BI COMPARISON: MG MAMM SCREEN 3D [place] CAD, 08/18/2021. MG MAMM SCREEN 3D [place] CAD, 08/21/2022. INDICATIONS: Screening for malignancy of breasts Calculator Name NCI Breast Cancer Risk Assessment Tool 5 Year Breast Cancer Risk 1.20% Lifetime Breast Cancer Risk 9.40% Personal Breast Cancer No Personal Ovarian Cancer No Treatments None Family Cancers None LOCATION: [facility] BREAST COMPOSITION: There are scattered areas of fibroglandular density. FINDINGS: DIAGNOSTIC CATEGORY 1--NEGATIVE. NO CHANGE FROM COMPARISON ASSESSMENT. Scattered benign-appearing lymph nodes are present. RIGHT BREAST: No significant suspicious finding. LEFT BREAST: No significant suspicious finding. RECOMMENDATIONS: ROUTINE MAMMOGRAM AND CLINICAL EVALUATION IN 12 MONTHS. PLEASE NOTE: A NORMAL MAMMOGRAM DOES NOT EXCLUDE THE POSSIBILITY OF BREAST CANCER. A CLINICALLY SUSPICIOUS PALPABLE LUMP SHOULD BE BIOPSIED. Dictated by: Taisha Manriquez MD on 01/27/2024 at 11:26 Approved by: Taisha Manriquez MD on 01/27/2024 at 11:27 Dictated By: Taisha Manriquez M.D. Signed By: 01/27/24 1128 DD/ 1127 TD/TT: Child Caregiver: [place] [address] Mammography Report Signed Patient: CHANTE KAUR MR#: [id number] : 1970 Acct:[id number] Age/Sex: 53 / F ADM Date: 01/27/24 Loc: MAMMO Attending Dr: Uri South D.O. Ordering Physician: Uri South D.O. Results: Date of Service: 06/11 Follow Up: Procedure(s): MM almita osynthesis screening BI Accession Number(s): [id number] cc: MRELE WEEKS ; Uri South D.O. Patient Name: CHANTE KAUR MR#: [id number] : 1970 Exam Date: 01/27/2024 Ordering Doctor: DR rUi South . RADIOLOGY REPORT PROCEDURE: MM TOMOSY NTHESIS SCREENING BI COMPARISON: MG MAMM SCREEN 3D [place]SON CAD, 08/18/2021. MG MAMM SCREEN 3D [place] CAD, 08/21/2022. INDICATIONS: Screeni ng for malignancy of breasts Calculator Name NCI Breast Cancer Risk Assessment Tool 5 Year Breast Cancer Risk 1.20% Lifetime Breast Canc er Risk 9.40% Personal Breast Cancer No Personal Ovarian Cancer No Treatments None Family Cancers None LOCATION: [facility] BREAST COMPOSITION: There are scattered areas of fibroglandular density. FINDINGS: DIAGNOSTIC CATEGORY 1--NEGATIVE. NO CHANGE FROM COMPARISON ASSESSMENT. Scattered benign-hadley earing lymph nodes are present. RIGHT BREAST: No sig nificant suspicious finding. LEFT BREAST: No sign ificant suspicious finding. RECOMMENDATIONS: ROUTINE MAMMOGRAM AN D CLINICAL EVALUATION IN 12 MONTHS. PLEASE NOTE: A MARSHALL L MAMMOGRAM DOES NOT EXCLUDE THE POSSIBILITY OF BREAST CANCER. A CLINICALLY SUSPICIOUS PALPABLE LUMP SHOULD BE BIOPSIED. Dictated by: Taisha burr MD on 01/27/2024 at 11:26 Approved by: Taisha burr MD on 01/27/2024 at 11:27 Dictated By: Taisha Manriquez M.D. Signed By: 01/27/24 1128 DD/ 1127 TD/TT: Child Caregiver: XR DEXA axial skeleton Reviewed date:02/14/2024 02:19:35 PM Interpretation: Performing Lab: Notes/Report: Source Facility: [place] [address] [place] [address] XRay Report Signed with Cody Patient: CHANTE KAUR MR#: [id number] : 1970 Acct:[id number] Age/Sex: 53 / F ADM Date: 01/27/24 Loc: MAMMO Attending Dr: Uri South D.O. Ordering Physician: Uri South D.O. Date of Service: 01/27/24 Procedure(s): XR DEXA axial skeleton Accession Number(s): [id number] cc: MERLE WEEKS ; Uri South D.O. ADDENDUM The [place] [id number] Patient Name: CHANTE KAUR MRN: [id number] date: 1970 Sex: F Assigned Patient Location: MAMMO Current Patient Location: MAMMO Accession/Order Number: [id number] Exam Date: 01/27/2024 07:48 Report Date: 02/09/2024 15:33 At the request of: URI SOUTH Procedure: XR DEXA axial skeleton Begin Addendum #1 Clinical content is unchanged. Pharmacologic treatment recommendations * No uniform recommendation applies to all patients. Management plans must be individualized. * Consider initiating pharmacologic treatment in postmenopausal women and men >= 50 years of age who have the following: Primary fracture prevention: * T-score <= - 2. 5 at the femoral neck, total hip, lumbar spine, 33% radius (some uncertainty with existing data) by DXA. * Low bone mass (osteopenia: T-score between - 1. 0 and - 2. 5) at the femoral neck or total hip by DXA with a 10-year hip fracture risk >= 3% or a 10-year major osteoporosis-related fracture risk >= 20% (i. e. , clinical vertebral, hip, forearm, or proximal humerus) based on the US-adapted FRAXregistered model. Secondary fracture prevention: * Fracture of the hip or vertebra regardless of BMD [4, 5]. * Fracture of proximal humerus, pelvis, or distal forearm in persons with low bone mass (osteopenia: T-score between - 1. 0 and - 2. 5). The decision to treat should be individualized in persons with a fracture of the proximal humerus, pelvis, or distal forearm who do not have osteopenia or low BMD [12, 13]. Neal MS, Ramirez SL, Mary KL, Dwayne EM, Roddy KG, AJ, Lele ES. The clinician's guide to prevention and treatment of osteoporosis. Osteoporos Int. 2021;33(10):0840-9200. doi: 10. 1007/[id number]-a. Epub 2021Dec 14. Erratum in: Osteoporos Int. 2021Mar 15;: PMID: 05937141; PMCID: [id number]. Original Report EXAMINATION: XR DEXA axial skeleton, 01/27/2024 7:48 AM EDT HISTORY: Osteoporosis COMPARISON: 2019 TECHNIQUE: Dual-energy X-ray absorptiometry (DEXA) bone density study performed for the axial skeleton. HISTORY: Osteoporosis FINDINGS: Bone mineral density AP spine L1-L4 measures 1. 377 g/sq cm. T score 1. 6. WHO classification: Normal. 3. 5% reduction from the prior exam Lowest bone mineral densities in the left femoral neck measuring 0. 865 g/sq cm. T score -1. 2. WHO classification: Osteopenia Addendum Dictated By: Taisha Manriquez M.D. Addendum Signed By: <Electronically signed by Taisha Manriquez M.D.> 02/14/24 105 Addendum Cosigned By: DD/ TD/TT: / ADDENDUM XR/XR DEXA axial skeleton IMPRESSION: Physiologic reduction in bone mineral density from 2019 Osteopenia. Moderate fracture risk Electronically authenticated by: TAISHA MANRIQUEZ Date: 02/09/2024 15:33 Addendum Dictated By: Taisha Manriquez M.D. Addendum Signed By: <Electronically signed by Taisha Manriquez M.D.> 02/14/24 105 Addendum Cosigned By: DD/ TD/TT: / [place] [address] Patient Name: CHANTE KAUR MRN: [id number] date: 1970 Sex: F Assigned Patient Location: [facility] Current Patient Location: [facility] Accession/Order Number: [id number] Exam Date: 01/27/2024 07:48 Report Date: 01/27/2024 08:07 At the request of: URI SOUTH Procedure: XR DEXA axial skeleton EXAMINATION: XR DEXA axial skeleton, 01/27/2024 7:48 AM EDT HISTORY: Osteoporosis COMPARISON: 2019 TECHNIQUE: Dual-energy X-ray absorptiometry (DEXA) bone density study performed for the axial skeleton. HISTORY: Osteoporosis FINDINGS: Bone mineral density AP spine L1-L4 measures 1.377 g/sq cm. T score 1.6. WHO classification: Normal. 3.5% reduction from the prior exam Lowest bone mineral densities in the left femoral neck measuring 0.865 g/sq cm. T score -1.2. WHO classification: Osteopenia XR/XR DEXA axial skeleton IMPRESSION: Physiologic reduction in bone mineral density from 2020 Osteopenia. Moderate fracture risk Electronically authenticated by: TAISHA MANRIQUEZ Date: 01/27/2024 08:07 Dictated By: Taisha Manriquez M.D. Signed By: 01/27/24808 DD/ 6 TD/TT: Child Caregiver: [place] [address] XRay Report Signed with Addenda Patient: CHANTE KAUR MR#: [id number] : 1970 Acct:[id number] Age/Sex: 53 / F ADM Date: 01/27/24 Loc: MAMMO Attending Dr: Uri South D.O. Ordering Physician: Uri South D.O. Date of Service: 01/27/24 Procedure(s): XR DEX A axial skeleton Accession Number(s): [id number] cc: MERLE WEEKS ; Uri South D.O. ADDENDUM The [place] [id number] Patient Name: CHANTE KAUR MRN: [id number] date: 1970 Sex: F Assigned Patient Loc ation: MAMMO Current Patient Location: [facility] Accession/Order Numb er: [id number] Exam Date: 01/27/2024 07:48 Report Date: 02/09/2024 15:33 At the request of: URI SOUTH Procedure: XR DEXA a xial skeleton Begin Addendum #1 Clinical content is unchanged. Pharmacologic treatm ent recommendations * No uniform recomme ndation applies to all patients. Management plans must be individualized. * Consider initiatin g pharmacologic treatment in postmenopausal women and men >= 50 years of age w ho have the following: Primary fracture prevention: * T-score <= - 2. 5 at the femoral neck, total hip, lumbar spine, 33% radius (some uncertainty wi th existing data) by DXA. * Low bone mass (ost eopenia: T-score between - 1. 0 and - 2. 5) at the femoral neck or total hip by DXA with a 10-year hip fracture risk >= 3% or a 10-year major osteoporosis-r elated fracture risk >= 20% (i. e. , clinical vertebral, hip, forearm, or proximal humerus) based on the US-adapted FRAXregistered model. Secondary fracture prevention: * Fracture of the hi p or vertebra regardless of BMD [4, 5]. * Fracture of proxim al humerus, pelvis, or distal forearm in persons with low bone mass (osteopeni a: T-score between - 1. 0 and - 2. 5). The decision to treat should be individual ized in persons with a fracture of the proximal humerus, pelvis, or distal fo rearm who do not have osteopenia or low BMD [12, 13]. Neal MS, Ramirez SL, Mary KL, Dwayne EM, Roddy KG, AJ, Lele ES. The clinician's guid e to prevention and treatment of osteoporosis. Osteoporos Int. 2021;33(10) :1771-7569. doi: 10. 1007/[id number]-c. Epub 2021Dec 14. Erratum in: Oste oporos Int. 2021Mar 15;: PMID: 41201110; PMCID: [id number]. Original Report EXAMINATION: XR DEXA axial skeleton, 01/27/2024 7:48 AM EDT HISTORY: Osteoporosis COMPARISON: 2019 TECHNIQUE: Dual-ener gy X-ray absorptiometry (DEXA) bone density study performed for the axial skeleton. HISTORY: Osteoporosis FINDINGS: Bone mineral density AP spine L1-L4 measures 1. 377 g/sq cm. T score 1. 6. WHO classification: Norm al. 3. 5% reduction from the prior exam Lowest bone mineral densities in the left femoral neck measuring 0. 865 g/sq cm. T score -1. 2. WHO classification: Osteopenia Addendum Dictated By : Taisha Manriquez M.D. Addendum Signed By: <Electronically signed by Taisha Manriquze M.D.> 02/14/241051 Addendum Cosigned By: DD/ TD/TT: / ADDENDUM X R/XR DEXA axial skeleton IMPRESSION: Physiologic reductio n in bone mineral density from 2020 Osteopenia. Moderate fracture risk Electronically authe nticated by: TAISHA MANRIQUEZ Date: 02/09/2024 15:33 Addendum Dictated By : Taisha Manriquez M.D. Addendum Signed By: <Electronically signed by Taisha Manriquez M.D.> 02/14/24 1052 Addendum Cosigned By: DD/ TD/TT: / [place] [address] Patient Name: CHANTE KAUR MRN: [id number] date: 1970 Sex: F Assigned Patient Loc ation: MAMMO Current Patient Location: [facility] Accession/Order Numb er: [id number] Exam Date: 01/27/2024 07:48 Report Date: 01/27/2024 08:07 At the request of: URI SOUTH Procedure: XR DEXA a xial skeleton EXAMINATION: XR DEXA axial skeleton, 01/27/2024 7:48 AM EDT HISTORY: Osteoporosis COMPARISON: 2020 TECHNIQUE: Dual-ener gy X-ray absorptiometry (DEXA) bone density study performed for the axial skeleton. HISTORY: Osteoporosis FINDINGS: Bone mineral density AP spine L1-L4 measures 1.377 g/sq cm. T score 1.6. WHO classification: Norm al. 3.5% reduction from the prior exam Lowest bone mineral densities in the left femoral neck measuring 0.865 g/sq cm. T score -1.2. WHO classification: Osteopenia X R/XR DEXA axial skeleton IMPRESSION: Physiologic reductio n in bone mineral density from 2019 Osteopenia. Moderate fracture risk Electronically authe nticated by: TAISHA MANRIQUEZ Date: 01/27/2024 08:07 Dictated By: Taisha Manriquez M.D. Signed By: 01/27/24 08 DD/ 6 TD/TT: Child Caregiver: XR DEXA axial skeleton Reviewed date:03/06/2024 12:01:06 PM Interpretation: Performing Lab: Notes/Report: Source Facility: [facility]-[address] [place] [address] [place] [address] XRay Report Addendum Patient: CHANTE KAUR MR#: [id number] : 1970 Acct:[id number] Age/Sex: 53 / F ADM Date: 01/27/24 Loc: MAMMO Attending Dr: Uri South D.O. Ordering Physician: Uri South D.O. Date of Service: 01/27/24 Procedure(s): XR DEXA axial skeleton Accession Number(s): [id number] cc: MERLE WEEKS ; Uri South D.O. ADDENDUM [place] [id number] Patient Name: CHANTE KAUR MRN: [id number] date: 1970 Sex: F Assigned Patient Location: [facility] Current Patient Location: [facility] Accession/Order Number: [id number] Exam Date: 01/27/2024 07:48 Report Date: 02/09/2024 15:33 At the request of: URI SOUTH Procedure: XR DEXA axial skeleton Begin Addendum #1 Clinical content is unchanged. Pharmacologic treatment recommendations * No uniform recommendation applies to all patients. Management plans must be individualized. * Consider initiating pharmacologic treatment in postmenopausal women and men >= 50 years of age who have the following: Primary fracture prevention: * T-score <= - 2. 5 at the femoral neck, total hip, lumbar spine, 33% radius (some uncertainty with existing data) by DXA. * Low bone mass (osteopenia: T-score between - 1. 0 and - 2. 5) at the femoral neck or total hip by DXA with a 10-year hip fracture risk >= 3% or a 10-year major osteoporosis-related fracture risk >= 20% (i. e. , clinical vertebral, hip, forearm, or proximal humerus) based on the [place]-adapted FRAXregistered model. Secondary fracture prevention: * Fracture of the hip or vertebra regardless of BMD [4, 5]. * Fracture of proximal humerus, pelvis, or distal forearm in persons with low bone mass (osteopenia: T-score between - 1. 0 and - 2. 5). The decision to treat should be individualized in persons with a fracture of the proximal humerus, pelvis, or distal forearm who do not have osteopenia or low BMD [12, 13]. Neal MS, Ramirez SL, Mary KL, Dwayne EM, Roddy KG, AJ, Lele ES. The clinician's guide to prevention and treatment of osteoporosis. Osteoporos Int. 2021;33(10):7449-7708. doi: 10. 1007/[id number]-q. Epub 2021Dec 14. Erratum in: Osteoporos Int. 2021Mar 15;: PMID: 04861758; PMCID: [id number]. Original Report EXAMINATION: XR DEXA axial skeleton, 01/27/2024 7:48 AM EDT HISTORY: Osteoporosis COMPARISON: 2019 TECHNIQUE: Dual-energy X-ray absorptiometry (DEXA) bone density study performed for the axial skeleton. HISTORY: Osteoporosis FINDINGS: Bone mineral density AP spine L1-L4 measures 1. 377 g/sq cm. T score 1. 6. WHO classification: Normal. 3. 5% reduction from the prior exam Lowest bone mineral densities in the left femoral neck measuring 0. 865 g/sq cm. T score -1. 2. WHO classification: Osteopenia Addendum Dictated By: Taisha Manriquez M.D. Addendum Signed By: Addendum Cosigned By: DD/ TD/TT: / ADDENDUM XR/XR DEXA axial skeleton IMPRESSION: Physiologic reduction in bone mineral density from 2020 Osteopenia. Moderate fracture risk Electronically authenticated by: TAISHA MANRIQUEZ Date: 02/09/2024 15:33 Addendum Dictated By: Taisha Manriquez M.D. Addendum Signed By: Addendum Cosigned By: DD/ TD/TT: / [address] [address] Patient Name: CHANTE KAUR MRN: [id number] date: 1970 Sex: F Assigned Patient Location: [facility] Current Patient Location: [facility] Accession/Order Number: [id number] Exam Date: 01/27/2024 07:48 Report Date: 01/27/2024 08:07 At the request of: URI SOUTH Procedure: XR DEXA axial skeleton EXAMINATION: XR DEXA axial skeleton, 01/27/2024 7:48 AM EDT HISTORY: Osteoporosis COMPARISON: 2019 TECHNIQUE: Dual-energy X-ray absorptiometry (DEXA) bone density study performed for the axial skeleton. HISTORY: Osteoporosis FINDINGS: Bone mineral density AP spine L1-L4 measures 1.377 g/sq cm. T score 1.6. WHO classification: Normal. 3.5% reduction from the prior exam Lowest bone mineral densities in the left femoral neck measuring 0.865 g/sq cm. T score -1.2. WHO classification: Osteopenia XR/XR DEXA axial skeleton IMPRESSION: Physiologic reduction in bone mineral density from 2019 Osteopenia. Moderate fracture risk Electronically authenticated by: TAISHA MANRIQUEZ Date: 01/27/2024 08:07 Dictated By: Taisha Manriquez M.D. Signed By: 01/27/24808 DD/ 6 TD/TT: Child Caregiver: [place] [address] XRay Report Addendum Patient: CHANTE KAUR MR#: [id number] : 1970 Acct:[id number] Age/Sex: 53 / F ADM Date: 01/27/24 [facility]: Uri South D.O. Ordering Physician: Uri South D.O. Date of Service: 01/27/24 Procedure(s): XR DEX A axial skeleton Accession Number(s): [id number] cc: MERLE WEEKS ; Uri South D.O. ADDENDUM The [address] [address] Patient Name: CHANTE KAUR MRN: [id number] date: 1970 Sex: F Assigned Patient Loc ation: GUS Current Patient Location: [facility] Accession/Order Numb er: [id number] Exam Date: 01/27/2024 07:48 Report Date: 02/09/2024 15:33 At the request of: URI SOUTH Procedure: XR DEXA a xial skeleton Begin Addendum #1 Clinical content is unchanged. Pharmacologic treatm ent recommendations * No uniform recomme ndation applies to all patients. Management plans must be individualized. * Consider initiatin g pharmacologic treatment in postmenopausal women and men >= 50 years of age w ho have the following: Primary fracture prevention: * T-score <= - 2. 5 at the femoral neck, total hip, lumbar spine, 33% radius (some uncertainty wi th existing data) by DXA. * Low bone mass (ost eopenia: T-score between - 1. 0 and - 2. 5) at the femoral neck or total hip by DXA with a 10-year hip fracture risk >= 3% or a 10-year major osteoporosis-r elated fracture risk >= 20% (i. e. , clinical vertebral, hip, forearm, or proximal humerus) based on the US-adapted FRAXregistered model. Secondary fracture prevention: * Fracture of the hi p or vertebra regardless of BMD [4, 5]. * Fracture of proxim al humerus, pelvis, or distal forearm in persons with low bone mass (osteopeni a: T-score between - 1. 0 and - 2. 5). The decision to treat should be individual ized in persons with a fracture of the proximal humerus, pelvis, or distal fo rearm who do not have osteopenia or low BMD [12, 13]. Neal MS, Ramirez SL, Mary KL, Dwayne EM, Roddy KG, AJ, Lele ES. The clinician's guid e to prevention and treatment of osteoporosis. Osteoporos Int. 2021;33(10) :9362-8721. doi: 10. 1007/r57850-546-20634-y. Epub 2021Dec 14. Erratum in: Oste oporos Int. 2021Mar 15;: PMID: 54899734; PMCID: [id number]. Original Report EXAMINATION: XR DEXA axial skeleton, 01/27/2024 7:48 AM EDT HISTORY: Osteoporosis COMPARISON: 2019 TECHNIQUE: Dual-ener gy X-ray absorptiometry (DEXA) bone density study performed for the axial skeleton. HISTORY: Osteoporosis FINDINGS: Bone mineral density AP spine L1-L4 measures 1. 377 g/sq cm. T score 1. 6. WHO classification: Norm al. 3. 5% reduction from the prior exam Lowest bone mineral densities in the left femoral neck measuring 0. 865 g/sq cm. T score -1. 2. WHO classification: Osteopenia Addendum Dictated By : Taisha Manriquez M.D. Addendum Signed By: Addendum Cosigned By: DD/ TD/TT: / ADDENDUM X R/XR DEXA axial skeleton IMPRESSION: Physiologic reductio n in bone mineral density from 2020 Osteopenia. Moderate fracture risk Electronically authe nticated by: TAISHA MANRIQUEZ Date: 02/09/2024 15:33 Addendum Dictated By : Taisha Manriquez M.D. Addendum Signed By: Addendum Cosigned By: DD/ TD/TT: / [place] [id number] Patient Name: CHANTE KAUR MRN: [id number] date: 1970 Sex: F Assigned Patient Loc ation: [facility] Current Patient Location: [facility] Accession/Order Numb er: [id number] Exam Date: 01/27/2024 07:48 Report Date: 01/27/2024 08:07 At the request of: URI SOUTH Procedure: XR DEXA a xial skeleton EXAMINATION: XR DEXA axial skeleton, 01/27/2024 7:48 AM EDT HISTORY: Osteoporosis COMPARISON: 2020 TECHNIQUE: Dual-ener gy X-ray absorptiometry (DEXA) bone density study performed for the axial skeleton. HISTORY: Osteoporosis FINDINGS: Bone mineral density AP spine L1-L4 measures 1.377 g/sq cm. T score 1.6. WHO classification: Norm al. 3.5% reduction from the prior exam Lowest bone mineral densities in the left femoral neck measuring 0.865 g/sq cm. T score -1.2. WHO classification: Osteopenia X R/XR DEXA axial skeleton IMPRESSION: Physiologic reductio n in bone mineral density from 2020 Osteopenia. Moderate fracture risk Electronically authe nticated by: TAISHA MANRIQUEZ Date: 01/27/2024 08:07 Dictated By: Taisha Manriquez M.D. Signed By: 01/27/24808 DD/ 6 TD/TT: Child Caregiver: Reason For Referral No Information Medications Medication SIG (Take, Route, Fr equency, Duration) Notes Start Date End Date Status Lisinopril 10 MG TAKE 1 TABLET BY ARNIE TH EVERY DAY FOR 30 DAYS for 30 Active Immunizations Vaccine Route Administration Date Status Comme nts Flu, Flucelvax (64900) 6 mos and older, single-dose syringe Unknown 06/18/2024 Administered Flu, Fluzone (68960) 6 mos+, single-dose syringe/vial (5536-0931) Unknown 06/03/2023 Administered SARS-COV-2 (COVID 19) bivale nt 30 mcg/0.3 ml dose Unknown 06/22/2022 Administered Social History Tobacco Use: Social History Observation Description Date Details (start date - stop date) Never Smoker NA - NA Tobacco Control (Standard) Question Answer Notes Tobacco use: Nonsmoker Problems Problem Type SNOMED Code ICD Code Onset Dates Problem Status W/U Status Risk Notes Problem [id number] Obesity, unspecified (E66.9) Active confirmed Problem [id number] Hypersomnia, unspecified (G47.10) Active confirmed Problem Hypertension (36856908) Hypertension (I10) Active confirmed Problem Prediabetes (775101686) Prediabetes (R73.09) Active confirmed Problem KIM (obstructive sleep apnea) (G47.33) Active confirmed Problem Osteoporosis (12922492) Osteoporosis (M81.0) Active confirmed Problem Factor V deficiency (4914034) Factor V deficiency (D68.2) Active confirmed Vital Signs Heart Rate 80 /min 08/25/2024 Temperature 97.1 degrees Fahrenheit 08/25/2024 Respiratory Rate 18 /min 08/25/2024 Oximetry 98 % 08/25/2024 Blood pressure diastolic 82 mm Hg 08/25/2024 Height 62 in 08/25/2024 Blood pressure systolic 133 mm Hg 08/25/2024 Weight 174.8 lbs 08/25/2024 BMI 31.97 kg/m2 08/25/2024 Procedures Procedure Date Ordered Date Performed Result Body Sit e Sleep study - Diagnostic Polysonogram 04/07/2024 N/A Encounters Encounter Location Date Provider Diagnosis [facility] [address] [facility] [place] [address] 04/07/2024 [facility] Hypersomnia, unspecified G47.10 ; Hypertension I10 ; Obesity, unspecified E66.9 and Body mass index [BMI] 30.0-30.9, adult Z68.30 [facility] [address] [place] [address] 08/25/2024 [facility] Hypertension I10 ; O SA (obstructive sleep apnea) G47.33 and Obesity, unspecified E66.9 [facility] [address] [facility] [place] [address] 01/27/2024 [facility] [address] [facility] [facility] [place] [address] 05/28/2024 [facility] Pulmonary Medicine [place] [address] [place] [address] 07/01/2024 Juan Jose [facility] Assessments Encounter Date Diagnosis (ICD Code) Assessment Notes Treatment Notes Treatment Clinical Notes Section Notes 04/07/2024 Hypersomnia, unspecified (ICD-10 - G47.10) Patient presents with concerns for obstructive sleep apnea. She does have physical exam findings which increase her risk of having KIM including Mallampati 3, macroglossia, and obesity (BMI 30). Though [place] was only 7, her STOP-BANG is 5 which is a high risk for sleep apnea. Explained polysomnography to the patient. As she is young and healthy, I feel a home sleep study would be sufficient for her. I also explained that the standard treatment for sleep apnea is CPAP therapy. Discussed complications of untreated sleep apnea. When discussing hypertension as an associated condition, she exuberantly exclaimed that she would be willing to wear a CPAP if indicated - anything so I do not have to take a pill for it [hypertension]. Plan will be to order a HST. If positive for KIM, will order a AutoPap 5-20. Explained the patient that she would need to be seen within 30 to 90 days for PAP compliance. Reviewed local DME: Patient voiced no preference. Patient has been scheduled for a 3-month follow-up in anticipation of reviewing compliance. If her HST is negative for KIM (AHI <5), then there would be no reason for the patient to follow-up with me. 04/07/2024 Hypertension (ICD-10 - I10) Patient was recently diagnosed with hypertension. Discussed that untreated sleep apnea can be associated with elevated blood pressures. She does not like having to take a pill for her blood pressure. When discussing treatment of sleep apnea with the CPAP could possibly improve her blood pressure, she voiced that she would be willing to wear it. 08/25/2024 Hypertension (ICD-10 - I10) Patient has [...] KIM (obstructive sleep apnea) (ICD-10 - G47.33) Wiij-qw-[id number] encounter performed with the patient to document continued need for PAP therapy. -Current DME: Lesvia -HST: 05/25/2024; Initial AHI: 11 -CPAP titration: 06/30/2024 @ [id number] -Compliance was reviewed from 07/25/2024 - 08/23/2024 -Total days used: 30 (100%) -Total of all days >4 hours of use: 27/ (90%) -Current model, mode, & pressure: AirSense 10 AutoSet [id number] -Residual AHI: 2.5 -Air leak (95th percentile): [...] bedtime and with any naps. -Note: This [id number] visit comes with my authorization that the patient's DME may request to renew, reorder, and/or replace tubing, supplies, mask, and/or PAP device (if applicable). 04/07/2024 Obesity, unspecified (ICD-10 - E66.9) Discussed that obesity increases the risk of having sleep apnea. She voiced that she will work on weight loss and increase activity. 08/25/2024 Obesity, unspecified (ICD-10 - E66.9) Weight loss encouraged. 04/07/2024 Body mass index [BMI] 30.0-30.9, adult (ICD-10 - Z68.30) 08/25/2024 Other Plan Of Treatment Next Appt Details Provider Name:Juan Jose Oneill, 08/24/2025 04:30:00 PM, [address] [place], [address], Insurance Providers Payer Name Payer Address Payer Phone Subscriber Number Group Number Insured Name Patient Relationship to Insured Coverage Start Date Coverage End Date MARIANNA SCHWAB [address] [place] [address] [id number] Chante Kaur Self - patient is the insured Medical (General) History Medical History History ICD Code KIM (obstructive sleep apnea) G47.33 Carpal tunnel syndrome, bilateral G56.03 Uterine fibroid D25.9 Factor V deficiency D68.2 Hypertension I10 Surgical History Surgery Date(Month/Year) CHOLECYSTECTOMY DELIVERY Carpal Tunnel Surgery- Bilateral hysterectomy adnoidectomy
--- OUTSIDE RECORDS SUMMARY | 2025-01-05 19:11 | XMS_ITS | CCD ---
Author Organization [facility] CliniSyva Care Team Providers Care Optical Glass Sawyer Name Role Phone MERLE FRANCO Admitting Unavailable MERLE FRANCO Attending Unavailable SALVADOR, MERLE Primary Care Unavailable SALVADOR, MERLE Consulting Unavailable MUNGUIA, LAINEY Consulting Unavailable SALVADOR, MERLE Admitting Unavailable SALVADOR, MERLE Attending Unavailable SALVADOR, MERLE Primary Care Unavailable SALVADOR, MERLE Primary Care Unavailable ABIGAIL ., KEVIN Admitting Unavailable ABIGAIL ., KEVIN Attending Unavailable RAMON ., BENNETT SANDERS Consulting Unavailabl MELANIE Swenson Consulting Unavailable KARASIK ., DR CORREIA Admitting Unavailabl e KARASIK ., DR CORREIA Attending Unavailcoleen e SALVADOR, MERLE Primary Care Unavailable KARASIK ., DR CORREIA Consulting Unavailabl e CIERA, DR NIGEL Zaldivar Consulting Unavailable KARASIK ., DR CORREIA Admitting Unavailabl e KARASIK ., DR CORREIA Attending Unavailabl e SALVADOR, [facility] Primary Care Unavailable KARASIK ., DR CORREIA Consulting Unavailabl e JUANITA STEARNS Attending Unavailable CARLI QUINTERO Attending Unavailable Salvador GAMEZ, Merle Unavailable Medications Current Medications Medication Drug Class(es) Dates Sig (Normalized) Sig (Original) cephalexin 500 mg oral capsule (2 sources) Cephalosporin Antibacterial Start: 01-05-2025 End: 01-12-2025 take 1 capsule by mouth in the morning, then take 1 capsule by mouth in the evening, then take 1 capsule by mouth at bedtime cephalexin (Keflex) 500 MG capsule Indications: Hematuria, unspecified type Take 1 capsule (500 mg) by mouth in the morning and 1 capsule (500 mg) in the evening and 1 capsule (500 mg) before bedtime. Do all this for 7 days. 21 capsule 01/05/2025 01/12/2025 Active lisinopril 10 mg oral tablet (3 sources) Angiotensin Converting Enzyme Inhibitor lisinopril 10 MG tablet 1 (one) time each day at the same time Active Problems Active Problems Problem Classification Problem Date Documented Date Episodic/Chronic Genitourinary symptoms and ill-defined conditions (2 sources) Blood in urine; Translations: [Hematuria, unspecified] 01-05-2025 Episodic Immunizations and screening for infectious disease (2 sources) Encounter for screening for human papillomavirus (HPV); Translations: [Encounter for immunization] Onset: 05-01-2022 Episodic Other nervous system disorders (3 sources) Carpal tunnel syndrome of left wrist; Translations: [Carpal tunnel syndrome, left upper limb] Onset: 08-05-2023 08-05-2023 Chronic Other nervous system disorders (3 sources) Carpal tunnel syndrome of right wrist; Translations: [Carpal tunnel syndrome, right upper limb] Onset: 08-05-2023 08-05-2023 Chronic Other screening for suspected conditions (not mental disorders or infectious disease) (10 sources) Encounter for screening mammogram for malignant [...] Results Test Name Value Interpretation Reference Range Facility Urinalysis macro (dipstick) panel (U)on 01-05-2025 Bilirubin, UA Negative Negative - 4(70) +++ mg/dL [facility] Blood, UA Positive Negative - 50 Robert/mcL [facility] Comment on above: moderate Clarity, UA Clear [facility] Color, UA Yellow [facility] Healthcar e Glucose, UA Negative Negative - 2000(110) ++++ mg/dL [facility] Interpretation and review of laboratory results Abnormal [facility] Ketones, UA Negative Negative - 160(16) ++++ mg/dL [facility] Leukocytes, UA Negative Negative - 500+++ Chad/mcL [facility] Nitrite, UA Negative Negative - Positive [facility] pH, UA 6 5 - [address] [facility] e Protein, UA Negative Negative - 2000(20) ++++ mg/dL [facility] Spec Grav, UA 1.03 1 - 1.03 [facility] Urobilinogen, UA 0.2 0.2 - 12 mg/dL [facility] Cyt[facility] Cervical or vaginal smear or scraping studyon 01-01-[address] [facility] e PAP ACOG PANEL 2: 30 to 65on 08-23-[address] [facility] Comment on above: Result Comment: Perf ormed at: BA Performed By: #### [id number] #### [facility] [address] [address] [address] Edi Muniz Age Gdln ACOG Testing 30-[address] [facility] Comment on above: Performed By: #### [id number] #### [facility] [address] [address] [address] Edi Muniz DIAGNOSIS: Comment Normal [facility] Comment on above: Result Comment: NEGA TIVE FOR INTRAEPITHELIAL LESION OR MALIGNANCY. Performed at: BA Performed By: #### [id number] #### [facility] [address] [address] [address] Edi Muniz HPV Aptima Negative Normal Negative [facility] Comment on above: Result Comment: This nucleic acid amplification test detects fourteen high-risk HPV types (16,18,31,33,35,39,45,51,52,56,58,59,66,68) without differentiation. Performed at: =G Performed By: #### [id number] #### [facility] [address] [address] [address] Edi Muniz HPV Genotype Reflex Comment Normal [facility] Comment on above: Result Comment: Crit eria not met, HPV Genotype not performed. Performed at: BA Performed By: #### [id number] #### [facility] [address] [place] [address] Dr. Edi Muniz Methodology: Comment Normal [facility] Comment on above: Result Comment: This liquid based ThinPrep(R) pap test was screened with the use of an image guided system. Performed at: WB Performed By: #### [id number] #### [facility] [address] [place] [address] Dr. Edi Muniz Note: Comment Normal [facility] Comment on above: Result Comment: The Pap smear is a screening test designed to aid in the detection of premalignant and malignant conditions of the uterine cervix. It is not a diagnostic procedure and should not be used as the sole means of detecting cervical cancer. Both false-positive and false-negative reports do occur. . Performed at: WB Performed By: #### [id number] #### [facility] [address] [place] [address] Dr. Edi Muniz Performed by: Comment Normal [facility] Comment on above: Result Comment: Zuhair Richards, Qc Manager (ASCP) Performed at: BA Performed By: #### [id number] #### [facility] [address] [place] [address] Dr. Edi Muniz Specimen adequacy: Comment Normal [facility] Comment on above: Result Comment: Sati sfactory for evaluation. No endocervical component is identified. Performed at: BA Performed By: #### [id number] #### [facility] [address] [place] [address] Dr. Edi Muniz MG MAMM SCREEN 3D WATSON CADon 08-21-2022 MG MAMM SCREEN 3D WATSON CAD Patient: CHANTE GREEN Exam Date: 08/21/2022 : 1970 Gender:F Ordering : DR BREN MELLO . Admission #: [id number] Family : Order #: [id number] CLICK HERE TO VIEW EXAM RADIOLOGY REPORT [...] Treatments None Family Cancers None LOCATION: [facility] BREAST COMPOSITION: Scattered areas fibroglandular density. FINDINGS: [...] Klein M.D. on 08/23/2022 at 08:[address] [facility] CT HEAD WO CONon 04-27-2022 CT [...] by: MELANIE BAEZ Date: 2022-04-27 20:[address] [facility] XR KNEE RT 4V or >on [...] by: LAINEY MUNGUIA Date: 2021-12-22 16:[address] [facility] Vital Signs Date Time Vital Sign Value Performing Clinician Faci lity 01-05-2025 15:22-0400 Body mass index (BMI) [Ratio] 31.46 kg/m2 Juanita GUAJARDO Work Phone: [facility] 01-05-2025 15:22-0400 Body weight 78.02 kg Juanita GUAJARDO Work Phone: [facility] 01-05-2025 15:22-0400 Diastolic blood pressure 82 mm[Hg] Juanita GUAJARDO Work Phone: [facility] 01-05-2025 15:22-0400 Systolic blood pressure 130 mm[Hg] Juanita GUAJARDO Work Phone: [facility] Healthcare Encounters Encounter Date Encounter Type Care Provider Facility Start: 01-05-2025 End: 01-05-2025 Patient encounter procedure Juanita GUAJARDO Work Phone: [facility] Work Phone: Start: 01-05-2025 End: 01-05-2025 Periodic preventive med est patient 40-64yrs Juanita GUAJARDO Work Phone: [facility] Comment on above: Well woman exam with routine gynecological exam; Breast cancer screening by mammogram; Hematuria, unspecified type Start: 01-05-2025 End: 01-05-2025 Bamboo flowsheet Juanita GUAJARDO Work Phone: [facility] Start: 01-05-2025 End: 01-05-2025 Bamboo flowsheet Juanita GUAJARDO Work Phone: [facility] Start: 01-01-2024 End: 01-01-2024 ambulatory JUANITA STEARNS Not Available Start: 08-06-2023 End: 08-06-2023 ambulatory CARLI T QUINTERO Not Available Start: 08-21-2022 End: 08-22-[address] BREN MELLO . Facility:[facility] Start: 08-15-2022 End: 08-15-[address] BREN MELLO . Facility:[facility] Start: 04-27-2022 End: 04-27-2022 ambulatory MERLE SALVADOR Facility:[facility] Start: 12-29-2021 End: 03-03-2022 ambulatory MERLE FRANCO Facility:[facility] Start: 12-22-2021 End: 12-23-2021 ambulatory MERLE FRANCO Facility:[facility] Procedures Date Procedure Procedure Detail Performing Clinician Start: 01-05-2025 Urnls dip stick/tabl et rgnt non-auto w/o micrscp Juanita GUAJARDO Work Phone: Start: 01-27-2024 Mammography Juanita GUAJARDO Work Phone: Start: 01-01-2024 Microscopic observat ion [Identifier] in Cervix by Cyto stain Juanita GUAJARDO Work Phone: Start: 01-01-2024 Cytp cerv/vag auto t hin layer prep mnl screen [facility] [place] Nurse Start: 08-15-2022 Microscopic observat ion [Identifier] in Cervix by Cyto stain Juanita GUAJARDO Work Phone: Plan of Treatment Date Care Activity Detail Author Start: 08-15-2027 Screening for malignant neoplasm of cervix [facility] Start: 12-31-2026 Screening for malignant neoplasm of cervix Pap Smear [facility] Start: 01-13-2026 End: 01-13-2026 Patient encounter procedure 01/13/2026 3:00 PM EDT Office Visit [facility] [address] [place] [address] Juanita Stearns PA [address] [place], [place] [id number] [facility] Start: 04-19-2025 Influenza vaccination Influenz a Vaccine (Season Ended) [facility] Start: 01-26-2025 Screening for malignant neoplasm of breast Mammogram [facility] Start: 01-13-2025 End: 01-13-2025 Patient encounter procedure 01/13/2025 3:20 PM EDT Office Visit [facility] [address] [facility] [address] Juanita Stearns PA [address] [facility] [address] [place], [place] [id number] [facility] Start: 01-05-2025 End: 01-05-2025 Patient encounter procedure 01/05/2025 3:00 PM EDT Office Visit [facility] [address] [facility] [address] Juanita Stearns PA [address] [facility] [address] [place], [place] [id number] Arrived [facility] Comment on above: Arrived Start: 01-05-2025 End: 03-07-2026 MG Breast - bilateral Screening Bilateral screening mammogram Imaging Routine Breast cancer screening by mammogram Expected: 01/05/2025, Expires: 03/07/2026 [facility] Work Phone: Comment on above: Expected: 01/05/2025 , Expires: 03/07/2026 Start: 1970 Screening for malignant neoplasm of colon [facility] Bacteria identified in Urine by Culture Urine culture Microbiology Routine Hematuria, unspecified type Ordered: 01/05/2025 [facility] Comment on above: Ordered: 01/05/2025 THIN PREP TIS PAP AN D HR HPV DNA THIN PREP TIS PAP AND HR HPV DNA Pathology and Cytology Routine Well woman exam with routine gynecological exam Ordered: 01/05/2025 [facility] Comment on above: Ordered: 01/05/2025 Immunizations Immunization Date Immunization Notes Care Provider Fa cility 06-22-2022 SARS-COV-2 (COVID-19 ) vaccine, mRNA, spike protein, LNP, bivalent, preservative free, 30 mcg/0.3 mL dose, kirill-sucrose formulation Juanita GUAJARDO Work Phone: [facility] 06-21-2022 Influenza, Seasonal, Quadrivalent, Adjuvanted Juanita GUAJARDO Work Phone: [facility] 06-21-2022 influenza virus vacc ine, unspecified formulation Juanita GUAJARDO Work Phone: [facility] 04-27-2022 diphtheria, tetanus toxoids and pertussis vaccine Juanita GUAJARDO Work Phone: [facility] 05-28-2021 influenza, injectabl e, quadrivalent, preservative free Juanita GUAJARDO Work Phone: [facility] 05-15-2020 Influenza, injectabl e, Madin Swapna Canine Kidney, quadrivalent with preservative Juanita GUAJARDO Work Phone: [facility] 06-11-2019 influenza, injectabl e, quadrivalent, preservative free Juanita Paint Lick PA Work Phone: [facility] 06-02-2019 influenza virus vacc ine, unspecified formulation Juanita GUAJARDO Work Phone: [facility] 05-30-2018 Influenza, injectabl e, Madin [place] Canine Kidney, preservative free, quadrivalent Juanita GUAJARDO Work Phone: [facility] Healthcare Payers Date Payer Category Payer Private Health Insurance [id number] 2020 Private Health Insurance MARIANNA Gerber [facility] [id number] 1970 Unknown [id number] 1970 Unknown [id number] 1970 Unknown [id number] 1970 Unknown [id number] 1970 Unknown [id number] 1970 Unknown [id number] 1970 Unknown [id number] 1959 Private Health Insurance [id number] 1959 Private Health Insurance [id number] Social History Date Type Detail Facility Start: 08-05-2023 Tobacco smoking stat [facility] Never smoked tobacco [facility] Start: 08-05-2023 Tobacco use and exposure Smoke less tobacco non-user [facility] Start: 01-01-2024 End: 01-05-2025 Alcoholic beverage intake Lifetime non-drinker (finding) [facility] Start: 01-01-2024 End: 01-05-2025 [facility] of Social function [facility] Start: 01-01-2024 End: 01-05-2025 Tobacco use panel [facility] Start: 1970 Sex assigned at Not on file [facility] History of Present illness Narrative 01-05-2025 BENNETT Peña - 01/05/2025 3:00 PM EDT Note Date & Type Note Facility 01-05-2025 History of Presen t illness Narrative Reason for Appointment: Patient ID: Chante Green is a 54 y.o. female who presents for Well Women Visit Patient presents today for Annual Exam. MEDICATIONS Current Outpatient Medications Medication Instructions cephalexin (KEFLEX) 500 mg, Oral, 3 times daily lisinopril 10 MG tablet Every 24 hours ALLERGIES No Known Allergies PROBLEMS Active Ambulatory Problems Diagnosis Date Noted Left carpal tunnel syndrome 08/05/2023 Right carpal tunnel syndrome 08/05/2023 Resolved Ambulatory Problems Diagnosis Date Noted No Resolved Ambulatory Problems Past Medical History: Diagnosis Date Factor V Leiden, prothrombin gene mutation (CMS/HCC) Sleep apnea HISTORY PAST MEDICAL HISTORY SOCIAL HISTORY Past Medical History: Diagnosis Date Factor V Leiden, prothrombin gene mutation ([facility]/HCC) Sleep apnea Social History Tobacco Use Smoking status: Never Smokeless tobacco: Never Substance Use Topics Alcohol use: Never Drug use: Not on file FAMILY HISTORY Family History Problem Relation Name Age of Onset Diabetes Mother Diabetes Father SURGICAL HISTORY Past Surgical History: Procedure Laterality Date CARPAL TUNNEL RELEASE Right 05/02/2022 Dr Chaudhary CARPAL TUNNEL RELEASE Left 05/23/2022 Dr Chaudhary CHOLECYSTECTOMY HYSTERECTOMY REVIEW OF SYSTEMS Review of Systems: Review of Systems Constitutional: Negative. HENT: Negative. Eyes: Negative. Respiratory: Negative. Cardiovascular: Negative. Gastrointestinal: Negative. Genitourinary: Negative. Musculoskeletal: Negative. Skin: Negative. Neurological: Negative. All other systems reviewed and are negative. Hematological: Negative. Endocrine: Negative. Allergic/Immunologic: Negative. OBJECTIVE Objective: Physical Exam Constitutional: Appearance: Normal appearance. Genitourinary: Right Adnexa: not tender and no mass present. Left Adnexa: not tender and no mass present. No cervical discharge. Breasts: Breasts are soft. Right: Normal. Left: Normal. HENT: Head: Normocephalic. Nose: Nose normal. Mouth/Throat: Mouth: Mucous membranes are moist. Cardiovascular: Rate and Rhythm: Normal rate. Pulmonary: Effort: Pulmonary effort is normal. Abdominal: General: Bowel sounds are normal. Palpations: Abdomen is soft. Musculoskeletal: General: Normal range of motion. Cervical back: Normal range of motion. Neurological: General: No focal deficit present. Mental Status: She is alert. Skin: General: Skin is warm and dry. Psychiatric: Mood and Affect: Mood normal. Vitals and nursing note reviewed. Exam conducted with a naval aircrewman operator present. Vitals: Estimated body mass index is 31.46 kg/m as calculated from the following: Height as of 05/10/22: 5' 2 . Weight as of this encounter: 172 lb. BP: 130/82 No LMP recorded. Patient has had a hysterectomy. ASSESSMENT & PLAN ICD-10-CM 1. Well woman exam with routine gynecological exam Z01.419 THIN PREP TIS PAP AND HR HPV DNA POCT urinalysis dipstick manually resulted 2. Breast cancer screening by mammogram Z12.31 Bilateral screening mammogram Bilateral screening mammogram 3. Hematuria, unspecified type R31.9 cephalexin (Keflex) 500 MG capsule Urine culture Annual Exam: Patient presents today for an annual exam. Patient states she is doing well and has no complaints. Pap was obtained without difficulty. Orders Placed This Encounter Procedures Urine culture Bilateral screening mammogram POCT urinalysis dipstick manually resulted Pt noted to have hematuria in urine today. We will send urine for culture and place on keflex Follow Up: Patient is to return in one year for annual unless needed otherwise. Documented by BENNETT Peña on behalf of: BENNETT Peña documented in this encounter [facility] Evaluation note Note Date & Type Note Facility Evaluation note Diagnosis Well woman exam with routine gynecological exam Routine gynecological examination Breast cancer screening by mammogram Hematuria, unspecified type documented in this encounter [facility] Summary Purpose Family History No Family History Records FoundNo Family History Records Found Advance Directives No Advanced Directives Records FoundNo Advanced Directives Records Found Additional Source Comments INFORMATION SOURCE (unrecogn ized section and content) DATE CREATED AUTHOR 10/13/2022 [facility] DATE CREATED AUTHOR AUTHOR'S ORGANIZ ATION 01/03/2024 [facility] EPIC Care Teams (unrecognized sec tion and content) Optical Glass Sawyer Relationship Specialty Start Date End Date Merle Franco MD [address] [place] [id number] Referring Physician Family Medicine 08/06/23 Optical Glass Sawyer Relationship Specialty Start Date End Date Merle Franco MD [address] [place] [id number] Referring Physician Family Medicine 08/06/23 Reason for Visit (unrecogniz ed section and content) Reason Comments Well Women Visit FOR RECORDS PERTAINING TO PATIENTS WHO ARE [...] BE BASED ON THE PRIMARY CLINICAL RECORDS. [facility]. provides no warranty or guarantee of the accuracy or completeness of information in this document.
[2025-01-08 18:09] LABS: Age Gdln ACOG Testing Note (.); HPV Aptima Negative (Negative); IGP, Aptima HPV, rfx 16/18,45 Note (.)
== END 2025-01-05 19:08 | disposition home or self-care (01) ==
LOC: LAB 19:07
PROVIDERS: PCP Internal Medicine; Visit Provider Physician Assistant
DX: Z01.419 Encounter for gynecological examination (general) (routine) without abnormal findings (principal)
CPT/HCPCS: 87624; 88175

== ENCOUNTER 2025-01-28 16:08 | Outpatient (OUT) | payer OTHER, SELFPAY ==
--- OUTSIDE RECORDS SUMMARY | 2024-08-25 12:15 | XMS_ITS ---
Author Organization The [facility] in [place] Address [address] [place] [address] Care Team Providers Care Fish And Wildlife Technician Name Role Phone Sharan Hummel Primary Care Provider Juan Jose Oneill Unavailable [phone] Allergies No Known Allergies REASON FOR VISIT 3 mos f/u KIM/PSG([employer]) Medications Medication SIG (Take, Route, Fr equency, Duration) Notes Start Date End Date Status Lisinopril 10 MG TAKE 1 TABLET BY ARNIE TH EVERY DAY FOR 30 DAYS for 30 Active Social History Tobacco Use: Social History Observation Description Date Details (start date - stop date) Never Smoker NA - NA Tobacco Control (Standard) Question Answer Notes Tobacco use: Nonsmoker Problems Problem Type SNOMED Code ICD Code Onset Dates Problem Status W/U Status Risk Notes Problem KIM (obstructive sleep apnea) (G47.33) Active confirmed Vital Signs Temperature 97.1 degrees Fahrenheit 08/25/19 25 Blood pressure systolic 133 mm Hg 08/25/19 25 Blood pressure diastolic 82 mm Hg 025 Heart Rate 80 /min 08/25/2024 Respiratory Rate 18 /min 08/25/2024 Height 62 in 08/25/2024 Weight 174.8 lbs 08/25/2024 BMI 31.97 kg/m2 08/25/2024 Oximetry 98 % 08/25/2024 Encounters Encounter Location Date Provider Diagnosis [facility] [place] [address] [place] [address] 08/25/2024 Juan Jose Oneill Hypertension I10 ; O SA (obstructive sleep apnea) G47.33 and Obesity, unspecified E66.9 Assessments Encounter Date Diagnosis (ICD Code) Assessment Notes Treatment Notes Treatment Clinical Notes Section Notes 08/25/2024 Hypertension (ICD-10 - I10) Patient has noticed improved blood pressure since starting the CPAP. I discussed that untreated sleep apnea is a risk factor for hypertension. She is asking me if I can stop her antihypertensive pill. I stated that I am not the one prescribing it, I am not monitoring it, and therefore I would not change any of the dosing. She was advised to discuss this with her PCP. 08/25/2024 KIM (obstructive sleep apnea) (ICD-10 - G47.33) Addn-ns-fvsa encounter performed with the patient to document continued need for PAP therapy. -Current DME: [facility] -HST: 05/25/2024; Initial AHI: 11 -CPAP titration: 06/30/2024 @ [id number] -Compliance was reviewed from 07/25/2024 - 08/23/2024 -Total days used: 30 (100%) -Total of all days >4 hours of use: 27/ (90%) -Current model, mode, & pressure: AirSense 10 AutoSet [id number] -Residual AHI: 2.5 -Air leak (95th percentile): 7.2L/min -Mask/harness fitting: Good -Sleep quality: Improved -Daytime hypersomnolence: Decreased -Recommendations: Patient appears to be responding very well to the CPAP. She has no issues with mask fitting, pressure, or leak. I reassured her that a residual AHI of 2.5 is excellent as the goal is less than 5. Although it may be possible that treatment of KIM resolves her hypertension, this is best managed by her PCP or her prescribing physician. She was encouraged to continuewearing the CPAP @ bedtime and with any naps. -Note: This pogo-gk-iaof visit comes with my authorization that the patient's DME may request to renew, reorder, and/or replace tubing, supplies, mask, and/or PAP device (if applicable). 08/25/2024 Obesity, unspecified (ICD-10 - E66.9) Weight loss encouraged. 08/25/2024 Other Plan Of Treatment Treatment Notes Assessment Notes Hypertension Patient has noticed improved blood pressure since starting the CPAP. I discussed that untreated sleep apnea is a risk factor for hypertension. She is asking me if I can stop her antihypertensive pill. I stated that I am not the one prescribing it, I am not monitoring it, and therefore I would not change any of the dosing. She was advised to discuss this with her PCP. KIM (obstructive sleep apnea) Muvg-rd-gunp encounter performed with the patient to document continued need for PAP therapy. -Current DME: [facility] -HST: 05/25/2024; Initial AHI: 11 -CPAP titration: 06/30/2024 @ [id number] -Compliance was reviewed from 07/25/2024 - 08/23/2024 -Total days used: (100%) -Total of all days >4 hours of use: (90%) -Current model, mode, & pressure: AirSense 10 AutoSet [id number] -Residual AHI: 2.5 -Air leak (95th percentile): 7.2L/min -Mask/harness fitting: Good -Sleep quality: Improved -Daytime hypersomnolence: Decreased -Recommendations: Patient appears to be responding very well to the CPAP. She has no issues with mask fitting, pressure, or leak. I reassured her that a residual AHI of 2.5 is excellent as the goal is less than 5. Although it may be possible that treatment of KIM resolves her hypertension, this is best managed by her PCP or her prescribing physician. She was encouraged to continuewearing the CPAP @ bedtime and with any naps. -Note: This dqbr-an-ykbu visit comes with my authorization that the patient's DME may request to renew, reorder, and/or replace tubing, supplies, mask, and/or PAP device (if applicable). Obesity, unspecified Weight loss encouraged. Next Appt Details Follow Up: 1 Year, Reason: O Provider Name:Merle segovia, 02/08/2025 08:30:00 AM, [address] [place], [address], Provider Name:Juan Jose Oneill, 08/24/2025 04:30:00 PM, [address] [place], [address], Progress Notes * Yaquelin KAUROB:1970 ( 54 yo F)Acc No.[id number]:08/25/2024 Follow Up Patient: Chante ACUNA Provider: Aimee Oneill DO :1970 A ge:54 Y S ex:Female Date:08/25/2024 Address:[address] [place], [place] [id number] Pcp:Sharan Hummel Check In:04:07 PM ESTCheck O ut:04:43 PM EST Subjective: * Chief Complaints: * 3 mos f/u KIM/PSG([employer]) * HPI: E pworth Sleepiness Scale: It took some time, but patient was eventually scheduled for testing. HST on 05/25/2024 noted a mild the elevated AHI of 11. Titration on 05/25/2024 noted CPAP pressure of [id number] optimal. She finally received her CPAP and compliance was reviewed. She has good excellent compliance at 90% of all nights 4 hours or greater with a residual AHI of 2.5. There is a mild leak. Patient states she feels better with it. She has noticed that her morning blood pressures have decreased since starting CPAP. She has better sleep quality and decreased hypersomnia at work. She voiced concern about residual apneic episode alarms. I explained that it is not unexpected to have occasional apneic episodes. The goal is to have apneas less than 5; as she is at 2.5, she is at goal and the CPAP is working appropriately. MA Intake Comments:. Lookout Sleepiness Scale C nestor of dozing while sitting and reading:?0 - Never C nestor of dozing while watching TV: 3 - High Chance C nestor of dozing while sitting in a public place: 0 - Never C nestor of dozing as a passenger in a car for an hour without a break: 0 - Never C nestor of dozing while lying down in the afternoon to rest: 0 - Never C nestor of dozing while sitting and talking to someone: 0 - Never C nestor of dozing while sitting quietly after lunch: 0 - Never C nestor of dozing in a stopped car for a few minutes in traffic: 0 - Never T OTAL SCORE: 3 Patient presents for a follow up for KIM. DME:[facility]. Patient is compliant with her PAP and denies any issues with her mask/machine. Patient reports great benefit from the PAP. * ROS: G eneral/Constitutional: Fever or sweats d enies. C hange of appetite d enies. C hills d enies. W eight Change d enies. H EENT: Dry mouth d enies. S ore throat d enies. O ral Ulcers d enies. P ost Nasal Drip D enies. C ongestion D enies. H oarseness?Denies. C ardiovascular: Tachycardia d enies. E jose D enies. C hest pain d enies. P alpitations d enies. R espiratory: Chest tightness d enies. P leurisy D enies. D yspnea d enies. C ough d enies. H emoptysis d enies. W heezing d enies.? G astrointestinal: Acid Reflux/GERD/Heartburn d enies. D ysphagia d enies. M usculoskeletal: Arthralgias/joint pain D enies. S kin: Easy bruising d enies. R alicia d enies. ? N eurologic: Seizures d enies. T remor d enies. H ematology: Abnormal Bleeding d enies. P sychiatric: Anxiety d enies. 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 Modified On:11/08/2023/U Status:confirmed R73.09 Prediabetes Modified On:12/10/2023/U Status:confirmed M81.0 Osteoporosis Modified On:02/14/2024/U Status:confirmed G47.10 Hypersomnia, unspeci fied Modified On:04/07/2024/U Status:confirmed E66.9 Obesity, unspecified Modified On:04/07/2024 Status:confirmed * Medical History: * Surgical History: C HOLECYSTECTOMY DELIVERY Carpal Tunnel Surgery- Bilateral hysterectomy adnoidectomy * Hospitalization/Major Diagno stic Procedure: D enies Past Hospitalization * Family History: F ather: , Colon Cancer, Alcoholism, diagnosed with Other malignant neoplasm of unspecified site, Diabetes mellitus without mention of complication, type II or unspecified type, not stated as uncontrolled. M other: alive, Kidney Stones, diagnosed with Diabetes mellitus without mention of complication, type II or unspecified type, not stated as uncontrolled. B rother(s): alive. S ister(s): alive. S on(s): alive. P aternal Grandfather: Heart Attack. 1 brother(s) , 1 sister(s) . 2 son(s) - healthy. . Family History of blood clotting issues. 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 D rugs/Alcohol: D rugs H ave you used drugs other than those for medical reasons in the past 12 months? N o D oes the Patient have a History of Drug Abuse in the Past? N o Caffeine I ntake: O [facility] Do you drink alcohol?: No. Do you smoke marijuana?: Denies. * Medications: T akingLisinopril 10 MG Tablet TAKE 1 TABLET BY MOUTH EVERY DAY FOR 30 DAYS Medication List reviewed and reconciled with the patientTaking Lisinopril 10 MG Tablet TAKE 1 TABLET BY MOUTH EVERY DAY FOR 30 DAYS Medication List reviewed and reconciled with the patient * Allergies: N .K.D.A.no[Allergies Verified] Objective: * Vitals: W t:174.8lbs, Ht: 62 in, BP:sittin/82mm Hg, Temp:Forehead:97.1F, HR:80/min, RR:18/min, BMI:31.97Index, Oxygen sat %:Room Air:98%, Ht-cm: 157.48 cm, Wt-k.29 kg. * Examination: E xam: GENERAL APPEARANCE: A ppears stated age. Skin N ormal. Mouth P ink and moist. Oropharynx M allampati Class III. Mild macroglossia.? Trachea M idline. Chest N ormal. Respiratory Normal M ovements, E ffort N ormal. Auscultation N ormal breath sounds. Cardiac R egular rate and rhythm. Gastrointestinal N ormal. Vascular N o edema. Musculoskeletal N ormal posture. Neurological F ocal, intact. Psychiatric A lert and oriented x3. Mentation/Cognition N ormal. Assessment: * Assessment: 1. O SA (obstructive sleep apnea) - G47.33 (Primary) 2 . H ypertension - I10 3 . O besity, unspecified - E66.9 Plan: * Treatment: 2. H ypertension Notes: Patient has noticed improved blood pressure since starting the CPAP. I discussed that untreated sleep apnea is a risk factor for hypertension. She is asking me if I can stop her antihypertensive pill. I stated that I am not the one prescribing it, I am not monitoring it, and therefore I would not change any of the dosing. She was advised to discuss this with her PCP. 3. O besity, unspecified Notes: Weight loss encouraged. * Procedure Codes: * Preventive Medicine: COVID Vaccination: H as patient had COVID Vaccination? COVID Vaccination Y es 06/22/2022 Immunization Status: I nfluenza 1 . Screenings/Counseling: F ALL RISK SCREENING Fall Risk Assessment: N o falls in the past year Are you afraid of falling? N o T OBACCO ACTION PLAN Exclusion: M edical Reason Non Smoker Type of Medical Reason: N ot indicated B IA ACTION PLAN Above Normal BMI Follow-up D ietary management education, guidance, and counseling * Follow Up: 1 Year (Reason: KIM) * * Sign off status: Completed Visit Status: C HK (Check Out) true * Provider: Aimee Oneill DO Date: 0 08/25/2024 Generated for Ruth tuttle/Bang/Antitting on: 0 01/28/2025 04:10 PM EDT History and Physical Notes * HPI (History of Present Illness) Category Sub-Category Detail Notes Category Not es Lookout Sleepiness Scale Lookout Sleepiness Scale Chance of dozing while sitting and reading:: 0 - Never Patient presents for a follow up for KIM. DME:[facility]. Patient is compliant with her PAP and denies any issues with her mask/machine. Patient reports great benefit from the PAP. Chance of dozing while watching TV:: 3 - High Chance Chance of dozing while sitting in a publ ic place:: 0 - Never Chance of dozing as a passen hilario in a car for an hour without a break:: 0 - Never Chance of dozing while lying down in the afternoon to rest:: 0 - Never Chance of dozing while sitting and talki ng to someone:: 0 - Never Chance of dozing while sitting quietly a fter lunch:: 0 - Never Chance of dozing in a stopped car for a few minutes in traffic:: 0 - Never TOTAL SCORE:: 3 Examination Category Sub-Category Detail Notes Category Not es Exam GENERAL APPEARANCE: Appears stated age Skin Normal Mouth [place] and moist Trachea Midline Chest Normal Respiratory Normal Movements, Ef fort Normal Auscultation Normal breath sounds Cardiac Regular rate and rhy thm Gastrointestinal Normal Vascular No edema Musculoskeletal Normal posture Neurological Focal, intact Psychiatric Alert and oriented x 3 Mentation/Cognition Normal Oropharynx Mallampati Class III . Mild macroglossia
--- OUTSIDE RECORDS SUMMARY | 2025-01-05 07:00 | XMS_ITS ---
Author Organization [facility] [place] Address [address] [place] [address] Care Team Providers Care Dental Secretary Name Role Phone Sharan Hummel Primary Care Provider Merle Weeks [phone] REASON FOR VISIT wellness Encounters Encounter Location Date Provider Diagnosis [facility] [address] [place] [address] 01/05/2025 Merle Weeks Plan Of Treatment Next Appt Details Provider Name:Merle segovia, 02/08/2025 08:30:00 AM, [address] [place], [address], Provider Name:Juan Jose Mai, 08/24/2025 04:30:00 PM, [address] [place], [address], Progress Notes * Yaquelin KAUROB:1970 ( 54 yo F)Acc No.[id number]:01/05/2025 UNLOCKED PROGRESS NOTE Progress Note Patient: Chante ACUNA Provider: Berta Weeks ([facility]), CAMP PROGRAM DIRECTOR :1970 A ge:54 Y S ex:Female Date:01/05/2025 Address:[address] [place], [place] [id number] Pcp:Sharan Hummel Subjective: * Chief Complaints: * 1 . Wellness. * Medical History: Objective: * Vitals: Assessment: Plan: * Treatment: * * Electronic signature of Jackie Mercado NP, OUT PATIENT THERAPIST.CAMP PROGRAM DIRECTOR.[id number] on 01/28/2025 at 04:11 PM EDT Sign off status: Pending Visit Status: C ANC (Cancelled) * Provider: Berta Weeks ([facility]), CAMP PROGRAM DIRECTOR Date: 0 01/05/2025 Generated for Ruth tuttle/Bang/eTransmitting on: 0 01/28/2025 04:11 PM EDT
--- OUTSIDE RECORDS SUMMARY | 2025-01-06 05:16 | XMS_ITS ---
Author Organization [facility] in [place] Address [address] [place] [address] Care Team Providers Care Eeler Name Role Phone Sharan Hummel Primary Care Provider REASON FOR VISIT review labs- [id number]- no returned calls Encounters Encounter Location Date Provider Diagnosis [facility] [address] [place] [address] 01/06/2025 Sharan Hummel Plan Of Treatment Next Appt Details Provider Name:Merle segovia, 02/08/2025 08:30:00 AM, [address] [place], [address], Provider Name:Juan Jose Oneill, 08/24/2025 04:30:00 PM, [address] [place], [address], Progress Notes * Yaquelin KAUROB:1970 ( 54 yo F)Acc No.[id number]:01/06/2025 Patient: Chante ACUNA :1970 A ge:54 Y S ex:Female Address:[address] [place] [address], [place] [address] * true * Date: Generated for Printi ng/Faxing/eTransmitting on: 0 01/28/2025 04:10 PM EDT
--- NOTE | 2025-01-28 | MM_ITS ---
Patient Name: FRITZ GREEN MR#: [id number] : 1970 Exam Date: 01/28/2025 Ordering Doctor: DR URI SINGH . cRADIOLOGY REPORT PROCEDURE: MM TOMOSYNTHESIS SCREENING BI COMPARISON: MM TOMOSYNTHESIS SCREENING BI, 01/27/2024. MG MAMM SCREEN 3D [place]ATSON CAD, 08/21/2022. MG MAMM SCREEN 3D [place] CAD, 08/18/2021. MG MAMM WATSON SCRN W CAD DIG, 02/17/2013. INDICATIONS: Screening for malignant neoplasm Calculator Name NCI Breast Cancer Risk Assessment Tool 5 Year Breast Cancer Risk 1.30% Lifetime Breast Cancer Risk 9.30% Personal Breast Cancer No Personal Ovarian Cancer No Treatments None Family Cancers None LOCATION: [facility] BREAST COMPOSITION: There are scattered areas of fibroglandular density. FINDINGS: RIGHT BREAST: No significant suspicious finding. LEFT BREAST: No significant suspicious finding. DIAGNOSTIC CATEGORY 1--NEGATIVE. RECOMMENDATIONS: ROUTINE MAMMOGRAM AND CLINICAL EVALUATION IN 12 MONTHS. PLEASE NOTE: A NORMAL MAMMOGRAM DOES NOT EXCLUDE THE POSSIBILITY OF BREAST CANCER. A CLINICALLY SUSPICIOUS PALPABLE LUMP SHOULD BE BIOPSIED. Dictated by: Miller Solis DO on 01/29/2025 at 07:59 Approved by: Miller Solis DO on 01/29/2025 at 08:01
--- OUTSIDE RECORDS SUMMARY | 2025-01-28 16:11 | XMS_ITS | Encounter Summary ---
Author Organization [facility] Address [address] [place] [address] Care Team Providers Care Car Hostler Name Role Phone Merle Weeks MD Unavailable [phone] Encounter Details Date Type Department Care Team (Late Contact Info) Description 01/27/2024 Clinisync Result Encounter [facility] External Department Unsolicited Kevin South DO [address] [place], [place] [address] Social History Tobacco Use Types Packs/Day Years Used Date Smoking Tobacco: Never Smokeless Tobacco: Never Alcohol Use Standard Drinks/Week Comments Never 0 (1 standard drink = 0.6 oz pur e alcohol) Comments No Sex and Gender Information Value Date Recorded Sex Assigned at Not on file Legal Sex Female 7:14 PM EDT Gender Identity Not on file Sexual Orientation Not on file documented as of this encounter Plan of Treatment Upcoming Encounters Date Type Department Care Team (Late Contact Info) Description 01/13/2026 3:00 PM EDT Office Visit [facility] [address] [facility] [place] [id number] Juanita Diaz PA [address] [place], [place] [id number] documented as of this encounter Procedures Procedure Name Priority Date/Time Associated Diagnosis Comments MM TOMOSYNTHESIS SCREENING BI 01/27/2024 11:27 AM EDT documented in this encounter Results * MM TOMOSYNTHESIS SCREENING BI (01/27/2024 11:27 AM EDT) Anatomical Region Laterality Modality Other 01/27/2024 11:2 7 AM EDT Narrative 01/27/2024 11:28 [place] [address] Mammography Report Signed Patient: FRITZ GREEN MR#: [id number] : 1970 Acct:[id number] Age/Sex: 53 / F ADM Date: 01/27/24 Loc: MAMMO Attending Dr: Kevin South D.O. Ordering Physician: Kevin South D.O. Results: Date of Service: 01/27/24 Follow Up: Procedure(s): MM tomosynthesis screening BI Accession Number(s): [id number] cc: MERLE WEEKS ; Kevin South D.O. Patient Name: FRITZ GREEN MR#: [id number] : 1970 Exam Date: 01/27/2024 Ordering Doctor: DR Kevin South . RADIOLOGY REPORT PROCEDURE: MM TOMOSYNTHESIS [...] None Family Cancers None LOCATION: [facility] BREAST COMPOSITION: There are scattered areas [...] PALPABLE LUMP SHOULD BE BIOPSIED. Dictated by: Ventura Jang MD on 01/27/2024 at 11:26 Approved by: Ventura Jang MD on 01/27/2024 at 11:27 Dictated By: Ventura Jang M.D. Signed By: 01/27/24 1128 DD/ 1127 TD/TT: Sales Representative Door To Door: Procedure Note Radiology, Radiologist, - 01/27/2024 [place] [address] Mammography Report Signed Patient: FRITZ GREEN MMR#: [id number] : 1970Acct:[id number] Age/Sex: 53 / FADM Date: 01/27/24 Loc: MAMMO Attending Dr: Kevin South D.O. Ordering Physician: Kevin South D.O.Results: Date of Service: 01/27/24Follow Up: Procedure(s): MM tomosynthesis screening BI Accession Number(s): [id number] cc: MERLE WEEKS ; Kevin South D.O. Patient Name: FRITZ GREEN MR#: [id number] : 1970 Exam Date: 01/27/2024 Ordering Doctor: DR Kevin South . RADIOLOGY REPORT PROCEDURE: MM TOMOSYNTHESIS SCREENING BI COMPARISON: MG MAMM SCREEN 3D [place]ATSON CAD, 08/18/2021. MG MAMM SCREEN 3DBIL CAD, 08/21/2022. INDICATIONS: Screening for malignancy of breasts Calculator Name NCI Breast Cancer Risk Assessment Tool 5 Year Breast Cancer Risk 1.20% Lifetime Breast Cancer Risk 9.40% Personal Breast Cancer No Personal Ovarian Cancer No Treatments None Family Cancers None LOCATION: [facility] BREAST COMPOSITION: There are scattered areas of fibroglandulardensity. FINDINGS: DIAGNOSTIC CATEGORY 1--NEGATIVE. NO CHANGE FROM COMPARISON ASSESSMENT. Scattered benign-appearing lymph nodes are present. RIGHT BREAST: No significant suspicious finding. LEFT BREAST: No significant suspicious finding. RECOMMENDATIONS: ROUTINE MAMMOGRAM AND CLINICAL EVALUATION IN 12 MONTHS. PLEASE NOTE: A NORMAL MAMMOGRAM DOES NOT EXCLUDE THE POSSIBILITY OFBREAST CANCER. A CLINICALLY SUSPICIOUS PALPABLE LUMP SHOULD BE BIOPSIED. Dictated by: Ventura Jang MD on 01/27/2024 at 11:26 Approved by: Ventura Jang MD on 01/27/2024 at 11:27 Dictated By: Ventura Jang M.D. Signed By:01/27/24 1128 DD/ 1127 TD/TT: Sales Representative Door To Door: us Kevin South DO [facility] Final Result documented in this encounter Visit Diagnoses Not on filedocumented in this encounter Care Teams Car Hostler Relationship Specialty Start Date End Date Merle Weeks MD [address] [place], [place] [id number] Referring Physician Family Medicine 08/06/23 documented as of this encounter
--- OUTSIDE RECORDS SUMMARY | 2025-01-28 16:11 | XMS_ITS | Encounter Summary ---
Author Organization [facility] Address [address] [place] [address] Care Team Providers Care Shipwright Name Role Phone Merle Weeks MD Unavailable [phone] Encounter Details Date Type Department Care Team (Late st Contact Info) Description 01/06/2025 Results [facility]-Up [facility] [address] [facility] [id number] Salma Jordan LPN [address] [place] [address] Social History Tobacco Use Types Packs/Day Years [...] on file documented as of this encounter Miscellaneous Notes * Result Encounter Note - Salma Jordan LPN - 01/06/2025 12:15 PM EDT Pt notified and medication switched. documented in this encounter Plan of Treatment Upcoming Encounters Date Type Department Care Team (Late st Contact Info) Description 01/13/2026 3:00 PM EDT Office Visit [facility] [address] [place] [address] Juanita Diaz PA [address] [place] [address] documented as of this encounter Visit Diagnoses Not on filedocumented in this encounter Care Teams Shipwright Relationship Specialty Start Date End Date Merle Weeks MD [address] [place], [place] [phone] Referring Physician Family Medicine 08/06/23 documented as of this encounter
--- OUTSIDE RECORDS SUMMARY | 2025-01-28 16:11 | XMS_ITS | Clinical Summary ---
Author Organization [facility] Address [id number] [address] [place] [address] Care Team Providers Care Documentation Improvement Specialist Name Role Phone Merle Weeks APRN-PROBE OPERATOR Primary Care Provider Allergies No known active allergies Medications No known medications Social History Tobacco Use Types Packs/Day Years Used Date Smoking Tobacco: Never Smokeless Tobacco: Never Alcohol Use Standard Drinks/Week Comments Never 0 (1 standard drink = 0.6 oz pur e alcohol) Childcare Answer Date Recorded Childcare Unknown 01/26/2019 Employment Answer Date Recorded Employment Unknown 01/26/2019 Comments No Sex and Gender Information Value Date Recorded Sex Assigned at Not on file Legal Sex Female 4:09 PM EDT Gender Identity Not on file Sexual Orientation Not on file Last Filed Vital Signs Vital Sign Reading Time Taken Comments Blood Pressure - - Pulse - - Temperature - - Respiratory Rate - - Oxygen Saturation - - Inhaled Oxygen Concentration - - Weight 72.6 kg (160 lb) 05/22/2022 12:15 PM EDT Height 157.5 cm (5' 2 ) 05/22/2022 12:15 PM EDT Body Mass Index 29.26 05/22/2022 12:15 PM EDT Plan of Treatment Health Maintenance Due Date Last Done Comments Depression Screening 1982 Tobacco Screening 1982 Zoster (Shingles) Vaccine (1 of 2) 2020 Adult BMI Screening 05/22/2023 05/22/2022 COVID-19 Vaccine (2023-2 5 season) 2024 07/02/2021, 11/22/2020, 10/31/2020 Influenza Vaccine 04/19/2025 05/28/2021, , 06/11/2019, Additional history exists DTaP,Tdap and Td Vaccines (2 - Tdap) 04/27/2032 04/27/2022 Medical Devices Not on file Insurance CIG Care Teams Documentation Improvement Specialist Relationship Specialty Start Date End Date Merle Weeks, PAPER SHEETER-PROBE OPERATOR [address] [facility], [place] [address] PCP - General Family Medicine 05/02/22
--- OUTSIDE RECORDS SUMMARY | 2025-01-28 16:11 | XMS_ITS | Clinical Summary ---
Author Organization [facility] Healthcare Address [address] [place] [address] Care Team Providers Care Camera Storage Clerk Name Role Phone Merle Weeks MD Unavailable [phone] Allergies No known active allergies Medications lisinopril 10 MG tablet 1 (one) time each day at the same time Active cephalexin (Keflex) 500 MG capsuleIndicatio ns:Hematuria, unspecified type Take 1 capsule (500 mg) by mouth in the morning and 1 capsule (500 mg) in the evening and 1 capsule (500 mg) before bedtime. Do all this for 7 days. 21 capsule 5 01/13/20 25 ciprofloxacin (Cipro) 500 MG tabletIndication s:Urinary Tract Infection Take 1 tablet (500 mg) by mouth in the morning and 1 tablet (500 mg) before bedtime. Do all this for 7 days. 14 tablet 5 01/14/20 25 Active Problems Problem Noted Date Diagnosed Date Left carpal tunnel syndrome 08/05/2023 Right carpal tunnel syndrome 08/05/2023 Encounters Date Type Department Care Team Description 01/19/2025 Orders Only [facility] [address] [place] [address] Neris Gay LPN 01/13/2025 3:20 PM EDT Office Visit [facility] [address] [place] [address] Juanita Diaz PA Urinary tract infection with hematuria, site unspecified 01/13/2025 Bamboo flowsheet [facility] [address] [place] [address] Juanita Diaz PA 01/06/2025 Results Follow-Up [facility] [address] [place] [address] Salma Jordan, MIRELLA 01/06/[address] [facility] [address] [place] [address] Salma Jordan, HOSPITAL UNIT CLERK 01/05/2025 3:00 PM EDT Office Visit [facility] [address] [place] [address] Juanita Diaz PA Well woman exam with routine gynecological exam; Breast cancer screening by mammogram; Hematuria, unspecified type 01/05/2025 Clinisync Result Encounter [facility] External Department Unsolicited Juanita Diaz PA 01/05/2025 External Result Encounter [facility] External Department Unsolicited Juanita Diaz PA 01/05/2025 Bamboo flowsheet [facility] [address] [place] [address] Juanita Diaz PA 01/05/2025 Travel from Last 3 Months Immunizations Immunization Administration Dates Next Due DTP 04/27/2022 Influenza, Seasonal, Quadrivalent, Adjuvanted Influenza, Unspecified 06/02/2019 Influenza, injectable, MDCK, preservative free, quadrivalent 05/30/2018 Influenza, injectable, MDCK, quadrivalent 2019 Influenza, injectable, quadrivalent, preservativ e free 05/28/2021,06/11/2019 SARS-COV-2 (COVID-19) vaccin e, mRNA, spike protein, LNP, bivalent, preservative free, 30 mcg/0.3 mL dose, kirill-sucrose formulation 06/22/2022 Family History Medical History Relation Name Comments Diabetes Father Diabetes Mother Relation Name Status Comments Father Maternal Grandfather Maternal Grandmother Mother Alive Paternal Grandfather Paternal Grandmother Social History Tobacco Use Types Packs/Day Years Used Date Smoking Tobacco: Never Smokeless Tobacco: Never Tobacco Cessation:Counseling Given: Not Answered Alcohol Use Standard Drinks/Week Comments Never 0 (1 standard drink = 0.6 oz pur e alcohol) Comments No Sex and Gender Information Value Date Recorded Sex Assigned at Not on file Legal Sex Female 7:14 PM EDT Gender Identity Not on file Sexual Orientation Not on file Last Filed Vital Signs Vital Sign Reading Time Taken Comments Blood Pressure 130/82 01/05/2025 3:22 PM EDT Pulse - - Temperature - - Respiratory Rate - - Oxygen Saturation - - Inhaled Oxygen Concentration - - Weight 78 kg (172 lb) 01/05/2025 3:22 PM EDT Height 157.5 cm (5' 2 ) 05/10/2022 12:00 PM EDT Body Mass Index 31.46 05/10/2022 12:00 PM EDT Plan of Treatment Upcoming Encounters Date Type Department Care Team (Late st Contact Info) Description 01/13/2026 3:00 PM EDT Office Visit [facility] [address] [place] [address] Juanita Diaz PA [address] [place] [address] Health Maintenance Due Date Last Done Comments CT Colonography 1970 Colonoscopy 1970 Colorectal Cancer Screening 1970 FIT-DNA 1970 FIT 1970 FOBT 1970 Sigmoidoscopy 1970 Mammogram 01/26/2025 01/27/2024, 10/2022, 08/15/2022, Additional history exists Influenza Vaccine (Season Ended) 2025 06/21/2022, 05/28/2021, 05/15/2020, Additional history exists Cervical Cancer Screening 08/15/2027 HPV/Cotest 08/15/2027 Pap Smear 01/06/2028 01/05/2025, 12/17, 08/15/2022 Procedures Procedure Name Priority Date/Time Associated Diagnosis Comments URINARY TRACT INFECTION (HTRX) Routine 01/13/2025 4:34 PM EDT POCT URINALYSIS DIPSTICK Routine 01/13/2025 3:43 PM EDT Urinary tract infection with hematuria, site unspecified URINARY TRACT INFECTION (HTRX) Routine 01/05/2025 4:10 PM EDT POCT URINALYSIS DIPSTICK Routine 01/05/2025 3:35 PM EDT Well woman exam with routine gynecological exam IGP,APTIMA HPV,AGE GDLN Routine 01/05/2025 3:12 PM EDT PAP SMEAR Routine 01/05/2025 12:00 AM EDT MM TOMOSYNTHESIS SCREENING BI 01/27/2024 11:27 AM EDT from Last 3 Months or Most Recently Relevant to Health Maintenance Results * URINARY TRACT INFECTION (HTRX) (01/13/2025 4:34 PM EDT) Only the most recent of2 resultswithin the time period is included. ACINETOBACTER BAUMANII 0.000 19.961 - 24.689 ppm 01/15/2025 6:53 AM EDT [facility] ACINETOBACTER BAUMANII Not Detected 19.961 - 24.689 ppm 01/15/2025 6:53 AM EDT [facility] CITROBACTER FREUNDII 0.000 23.000 - 31.881 ppm 01/15/2025 6:53 AM EDT [facility] CITROBACTER FREUNDII Not Detected 23.000 - 31.881 ppm 01/15/2025 6:53 AM EDT [facility] ENTEROBACTER AEROGENES, CLOACAE 0.000 23.000 - 31.535 ppm 01/15/2025 6:53 AM EDT [facility] ENTEROBACTER AEROGENES, CLOACAE Not Detected 23.000 - 31.535 ppm 01/15/2025 6:53 AM EDT [facility] ENTEROCOCCUS FAECALIS, FAECIUM 0.000 26.000 - 31.575 ppm 01/15/2025 6:53 AM EDT [facility] ENTEROCOCCUS FAECALIS, FAECIUM Not Detected 26.000 - 31.575 ppm 01/15/2025 6:53 AM EDT [facility] ESCHERICHIA COLI 0.000 23.000 - 28.500 ppm 01/15/2025 6:53 AM EDT [facility] ESCHERICHIA COLI Not Detected 23.000 - 28.500 ppm 01/15/2025 6:53 AM EDT [facility] KLEBSIELLA PNEUMONIAE, OXYTOCA 0.000 23.000 - 30.500 ppm 01/15/2025 6:53 AM EDT [facility] KLEBSIELLA PNEUMONIAE, OXYTOCA Not Detected 23.000 - 30.500 ppm 01/15/2025 6:53 AM EDT [facility] MORGANELLA MORGANII 0.000 19.961 - 24.689 ppm 01/15/2025 6:53 AM EDT [facility] MORGANELLA MORGANII Not Detected 19.961 - 24.689 ppm 01/15/2025 6:53 AM EDT [facility] PROTEUS MIRABILIS, VULGARIS 0.000 23.000 - 28.500 ppm 01/15/2025 6:53 AM EDT [facility] PROTEUS MIRABILIS, VULGARIS Not Detected 23.000 - 28.500 ppm 01/15/2025 6:53 AM EDT [facility] PSEUDOMONAS AERUGINOSA 0.000 23.000 - 28.500 ppm 01/15/2025 6:53 AM EDT [facility] PSEUDOMONAS AERUGINOSA Not Detected 23.000 - 28.500 ppm 01/15/2025 6:53 AM EDT [facility] STAPHYLOCOCCUS AUREUS 0.000 26.000 - 30.902 ppm 01/15/2025 6:53 AM EDT [facility] STAPHYLOCOCCUS AUREUS Not Detected 26.000 - 30.902 ppm 01/15/2025 6:53 AM EDT [facility] STREPTOCOCCUS AGALACTIAE (GROUP B STREP) 0.000 26.000 - 32.222 ppm 01/15/2025 6:53 AM EDT [facility] STREPTOCOCCUS AGALACTIAE (GROUP B STREP) Not Detected 26.000 - 32.222 ppm 01/15/2025 6:53 AM EDT [facility] LORA ALBICANS, PARAPSILOSIS, TROPICALIS 0.000 19.961 - 30.770 ppm 01/15/2025 6:53 AM EDT [facility] LORA ALBICANS, PARAPSILOSIS, TROPICALIS Not Detected 19.961 - 30.770 ppm 01/15/2025 6:53 AM EDT [facility] LORA GLABRATA 0.000 23.000 - 32.138 ppm 01/15/2025 6:53 AM EDT [facility] LORA GLABRATA Not Detected 23.000 - 32.138 ppm 01/15/2025 6:53 AM EDT [facility] LORA KRUSEI 0.000 23.000 - 32.271 ppm 01/15/2025 6:53 AM EDT [facility] LORA KRUSEI Not Detected 23.000 - 32.271 ppm 01/15/2025 6:53 AM EDT [facility] SERRATIA MARCESCENS 0.000 23.000 - 31.204 ppm 01/15/2025 6:53 AM EDT [facility] SERRATIA MARCESCENS Not Detected 23.000 - 31.204 ppm 01/15/2025 6:53 AM EDT [facility] STREPTOCOCCUS PYOGENES (GROUP A STREP) 0.000 19.961 - 24.689 ppm 01/15/2025 6:53 AM EDT [facility] STREPTOCOCCUS PYOGENES (GROUP A STREP) Not Detected 19.961 - 24.689 ppm 01/15/2025 6:53 AM EDT [facility] STAPHYLOCOCCUS EPIDERMIDIS, HAEMOLYTICUS, LUGDUNENSIS, SAPROPHYTICUS (URINA 0.000 19.961 - 24.689 ppm 01/15/2025 6:53 AM EDT [facility] STAPHYLOCOCCUS EPIDERMIDIS, HAEMOLYTICUS, LUGDUNENSIS, SAPROPHYTICUS (URINA Not Detected 19.961 - 24.689 ppm 01/15/2025 6:53 AM EDT [facility] STAPHYLOCOCCUS EPIDERMIDIS, HAEMOLYTICUS, LUGDUNENSIS, SAPROPHYTICUS (URINA 0.000 19.961 - 24.689 ppm 01/15/2025 6:53 AM EDT [facility] STAPHYLOCOCCUS EPIDERMIDIS, HAEMOLYTICUS, LUGDUNENSIS, SAPROPHYTICUS (URINA Not Detected 19.961 - 24.689 ppm 01/15/2025 6:53 AM EDT [facility] Urine 01/13/2025 4:34 PM EDT 01/15/2025 1:51 AM EDT Juanita GUAJARDO LAB BLOOD ORDERABLES Final Resul t [facility] [address] [place] [address] * (ABNORMAL) POCT urinalysis dipstick manually resulted (01/13/2025 3:43 PM EDT) Only the most recent of2 resultswithin the time period is included. Color, UA Yellow Clarity, UA Clear Glucose, UA Negative Negative - 2000(110) ++++ mg/dL Bilirubin, UA Negative Negative - 4(70) +++ mg/dL Ketones, UA Negative Negative - 160(16) ++++ mg/dL Spec Grav, UA 1.010 1 - 1.03 Blood, UA Positive Negative - 50 Robert/mcL Comment:small pH, UA 6.0 5 - 9 Protein, UA Negative Negative - 2000(20) ++++ mg/dL Urobilinogen, UA 0.2 0.2 - 12 mg/dL Leukocytes, UA Negative Negative - 500+++ Chad/mcL Nitrite, UA Negative Negative - Positive Urine 01/13/2025 3:43 PM EDT us Juanita GUAJARDO POINT OF CARE TEST ENTER/EDIT OR DERABLES Final Result * IGP,APTIMA HPV,AGE GDLN (01/05/2025 3:12 PM EDT) AGE GDLN ACOG TESTING Note . [facility] Comment: TESTS RESULT FLAG UNITS REF RANGE LAB Clinician Provided Cytology Information Source.............Vagina No. of containers..01 ThinPrep Vial Age Algo AC Rocío... FLAG LEGEND: L-Low Normal,H-High Normal,LL-Alert Low,HH-Alert High <-Panic Low,>-Panic High,A-Abnormal,AA-Critical Abnormal Performed at: 01 =G [address] [address] Elsa Galdamez MD, IGP, APTIMA HPV, RFX 16/18,45 Note . [facility] Comment: TESTS RESULT FLAG UNITS REF RANGE LAB DIAGNOSIS: 02 NEGATIVE FOR INTRAEPITHELIAL LESION OR MALIGNANCY. Specimen adequacy: 02 Satisfactory for evaluation. Performed by: Doris Ortiz Professor Of Biology ([facility]) . 02 Note: Note 02 The Pap smear is a screening test designed to aid in the detection of premalignant and malignant conditions of the uterine cervix. It is not a diagnostic procedure and should not be used as the sole means of detecting cervical cancer. Both false-positive and false-negative reports do occur. Test Methodology: Note 02 This liquid based ThinPrep(R) pap test was screened with the use of an image guided system. HPV Genotype Reflex Note 02 Criteria not met, HPV Genotype not performed. FLAG LEGEND: L-Low Normal,H-High Normal,LL-Alert Low,HH-Alert High <-Panic Low,>-Panic High,A-Abnormal,AA-Critical Abnormal Performed at: [address] [address] Elsa Galdamez MD, HPV APTIMA Negative Negative [facility] Comment: This nucleic acid amplification test detects fourteen high- risk HPV types (16,18,31,33,35,39,45,51,52,56,58,59,66,68) without differentiation. Performed at: = - [address] [id number] Operations Plant Attendant: Elsa Galdamez MD, Phone: [phone] Performed at: [address] [id number] Operations Plant Attendant: Elsa Galdamez MD, Phone: [phone] 01/05/2025 3:12 PM EDT 01/05/2025 8:44 PM EDT Narrative [facility] - 01/08/2025 6:09 PM EDT SPATULA-ALONE VAGINA us Juanita GUAJARDO LAB BLOOD ORDERABLES Final Resul t [facility] * Pap Smear (01/05/2025 12:00 AM EDT) Swab Cervical swab / Unknown us [facility] Danni South Nurse LAB CYTOLOGY ORDERABLES Final Result EXTERNAL LAB * MM TOMOSYNTHESIS SCREENING BI (01/27/2024 11:27 AM EDT) Anatomical Region Laterality Modality Other 01/27/2024 11:2 7 AM EDT Narrative 01/27/2024 11:28 [place] [address] Mammography Report Signed Patient: CHANTE GREEN MR#: [id number] : 1970 Acct:[id number] Age/Sex: 53 / F ADM Date: 01/27/24 Loc: MAMMO Attending Dr: Kevin South D.O. Ordering Physician: Kevin South D.O. Results: Date of Service: 01/27/24 Follow Up: Procedure(s): MM tomosynthesis screening BI Accession Number(s): [id number] cc: MERLE WEEKS ; Kevin South D.O. Patient Name: CHANTE GREEN MR#: [id number] : 1970 Exam Date: 01/27/2024 Ordering Doctor: [...] No Treatments None Family Cancers None LOCATION: [facility] BREAST COMPOSITION: There are scattered areas of [...] Signed By: 01/27/24 1128 DD/ 1127 TD/TT: Hims Manager: Procedure Note Radiology, Radiologist, MD - 01/27/2024 [place] [address] Mammography Report Signed Patient: CHANTE GREEN MMR#: [id number] : 1970Acct:[id number] Age/Sex: 53 / FADM Date: 01/27/24 Loc: MAMMO Attending Dr: Kevin South D.O. Ordering Physician: Kevin South D.O.Results: Date of Service: 01/27/24Follow Up: Procedure(s): MM tomosynthesis screening BI Accession Number(s): [id number] cc: MERLE WEEKS ; Kevin South D.O. Patient Name: CHANTE GREEN MR#: [id number] : 1970 Exam Date: 01/27/2024 Ordering Doctor: [...] Treatments None Family Cancers None LOCATION: [facility] BREAST COMPOSITION: There are scattered areas [...] M.D. Signed By:01/27/24 1128 DD/ 1127 TD/TT: Hims Manager: [facility] Akosua DO [facility] Final Result from Last 3 Months or Most Recently Relevant to Health Maintenance Insurance [employer] Care Teams Camera Storage Clerk Relationship Specialty Start Date End Date Merle Weeks MD [address] [place] [address] Referring Physician Family Medicine 08/06/23
--- OUTSIDE RECORDS SUMMARY | 2025-01-28 16:11 | XMS_ITS | Encounter Summary ---
Author Organization [facility] Address [address] [place] [address] Care Team Providers Care Curriculum Specialist Name Role Phone Merle Weeks MD Unavailable [phone] Encounter Details Date Type Department Care Team (Late Contact Info) Description 01/27/2024 Abstract [facility] OB [address] [place] [address] Salma Jordan LPN [address] [place] [address] Social History Tobacco Use Types Packs/Day Years [...] 01/13/2026 3:00 PM EDT Office Visit [facility] [address] [place] [address] [place] [address] Juanita Diaz PA [address] [place] [address] documented as of this encounter Visit Diagnoses Not on filedocumented in this encounter Care Teams Curriculum Specialist Relationship Specialty Start Date End Date Merle Weeks MD [address] [place] [address] Referring Physician Family Medicine 08/06/23 documented as of this encounter
--- OUTSIDE RECORDS SUMMARY | 2025-01-28 16:11 | XMS_ITS | Patient Health Record ---
Author Organization [facility] [place] Address [address] [place] [address] Care Team Providers Care Community Health Outreach Worker Name Role Phone Sharan Hummel Primary Care Provider Juan Jose Oneill Unavailable [phone] Merle Weeks Unavailable [phone] Allergies No Known Allergies Reason For Referral No Information Medications Medication SIG (Take, Route, Fr equency, Duration) Notes Start Date End Date Status Lisinopril 10 MG TAKE 1 TABLET BY ARNIE TH EVERY DAY FOR 30 DAYS for 30 Active Immunizations Vaccine Route Administration Date Status Comme nts Flu, Flucelvax (10868) 6 mos and older, single-dose syringe Unknown 06/18/2024 Administered Flu, Fluzone (03802) 6 mos+, single-dose syringe/vial (3848-9429) Unknown 06/03/2023 Administered SARS-COV-2 (COVID 19) bivale nt 30 mcg/0.3 ml dose Unknown 06/22/2022 Administered Social History Tobacco Use: Social History Observation Description Date Details (start date - stop date) Never Smoker NA - NA Tobacco Control (Standard) Question Answer Notes Tobacco use: Nonsmoker Problems Problem Type SNOMED Code ICD Code Onset Dates Problem Status W/U Status Risk Notes Problem 060917720 Obesity, unspecified (E66.9) Active confirmed Problem 34228536476078 Hypersomnia, unspecified (G47.10) Active confirmed Problem Hypertension (68176112) Hypertension (I10) Active confirmed Problem Prediabetes (208134588) Prediabetes (R73.09) Active confirmed Problem Obstructive sleep apnea syndrome (67243914) KIM (obstructive sleep apnea) (G47.33) Active confirmed Problem Osteoporosis (04699514) Osteoporosis (M81.0) Active confirmed Problem Factor V deficiency (4260752) Factor V deficiency (D68.2) Active confirmed Vital [...] Encounter Location Date Provider Diagnosis Pulmonary Medicine [place] [address] [place] [address] 05/28/2024 [facility] Pulmonary Medicine [place] [address] [place] [address] 07/01/2024 [facility] [address] [place] [address] 01/06/2025 Sharan Hummel Pulmonary Medicine [place] [address] [place] [address] 08/25/2024 [facility] Hypertension I10 ; O SA (obstructive sleep apnea) G47.33 and Obesity, unspecified E66.9 Pulmonary Medicine [place] [address] [place] [address] 04/07/2024 [facility] Hypersomnia, unspecified G47.10 ; Hypertension I10 ; Obesity, unspecified E66.9 and Body mass index [BMI] 30.0-30.9, adult Z68.30 Assessments Encounter Date Diagnosis (ICD Code) Assessment Notes Treatment Notes Treatment Clinical Notes Section Notes 04/07/2024 Hypersomnia, unspecified (ICD-10 - G47.10) Patient presents with concerns for obstructive sleep apnea. She does have physical exam findings which increase her risk of having KIM including Mallampati 3, macroglossia, and obesity (BMI 30). Though [place] was only 7, her STOP-BANG is 5 [...] KIM (obstructive sleep apnea) (ICD-10 - G47.33) Tulo-xu-wiov encounter performed with the patient to document continued need for PAP therapy. -Current DME: [facility] -HST: 05/25/2024; Initial AHI: 11 -CPAP titration: 06/30/2024 @ [id number] -Compliance was reviewed from 07/25/2024 - 08/23/2024 -Total days used: 30 (100%) -Total of all days >4 hours of use: (90%) -Current model, mode, & pressure: AirSense 10 AutoSet [id number] -Residual AHI: 2.5 -Air leak (95th percentile): [...] bedtime and with any naps. -Note: This iquf-ze-elde visit comes with my authorization that the patient's DME may request to renew, reorder, and/or replace tubing, supplies, mask, and/or PAP device (if applicable). 08/25/2024 Obesity, unspecified (ICD-10 - E66.9) Weight loss encouraged. 04/07/2024 Obesity, unspecified (ICD-10 - E66.9) Discussed that obesity increases the risk of having sleep apnea. She voiced that she will work on weight loss and increase activity. 04/07/2024 Body mass index [BMI] 30.0-30.9, adult (ICD-10 - Z68.30) 08/25/2024 Other Plan Of Treatment Next Appt Details Provider Name:Merle segovia, 02/08/2025 08:30:00 AM, [address] [place], [address], Provider Name:Juan Jose Oneill, 08/24/2025 04:30:00 PM, [address] [place], [address], Insurance Providers Payer Name Payer Address Payer Phone Subscriber Number Group Number Insured Name Patient Relationship to Insured Coverage Start Date Coverage End Date [employer] [address] [place] [address] [id number] Chante Kaur Self - patient is the insured Medical (General) History Medical History History ICD Code KIM (obstructive sleep apnea) G47.33 Carpal tunnel syndrome, bilateral G56.03 Uterine fibroid D25.9 Factor V deficiency D68.2 Hypertension I10 Surgical History Surgery Date(Month/Year) CHOLECYSTECTOMY DELIVERY Carpal Tunnel Surgery- Bilateral hysterectomy adnoidectomy
--- OUTSIDE RECORDS SUMMARY | 2025-01-28 16:11 | XMS_ITS | Encounter Summary ---
Author Organization [facility] Address [address] [place] [address] Care Team Providers Care Picker Tender Name Role Phone Merle Weeks MD Unavailable [phone] Encounter Details Date Type Department Care Team (Late Contact Info) Description 01/19/[address] [facility] [address] [address] Neris Gay LPN [address] [place] [address] Social History Tobacco Use Types Packs/Day Years [...] 01/13/2026 3:00 PM EDT Office Visit [facility] [address] [place] [address] Juanita Diaz PA [address] [facility] [place] [address] documented as of this encounter Procedures Procedure Name Priority Date/Time Associated Diagnosis Comments PAP SMEAR Routine 01/05/2025 12:00 AM EDT documented in this encounter Results * Pap Smear (01/05/2025 12:00 AM EDT) Swab Cervical swab / Unknown us [facility] Nurse LAB CYTOLOGY ORDERABLES Final Result EXTERNAL LAB documented in this encounter Visit Diagnoses Not on filedocumented in this encounter Care Teams Picker Tender Relationship Specialty Start Date End Date Merle Weeks MD [address] [place] [phone] Referring Physician Family Medicine 08/06/23 documented as of this encounter
--- OUTSIDE RECORDS SUMMARY | 2025-01-28 16:11 | XMS_ITS | Encounter Summary ---
Author Organization [facility] Address [address] [place] [address] Care Team Providers Care Rug Measurer Name Role Phone Merle Weeks MD Unavailable Encounter Details Date Type Department Care Team (Late st Contact Info) Description 01/27/2024 Clinisync Result Encounter [facility] Department Unsolicited Uri South, DO [address] [place] [address] Social History Tobacco Use Types Packs/Day Years [...] Encounter Note - Salma Jordan LPN - 01/27/2024 8:22 AM EDT Pt was not taking calcium but will start and she was already taking vitamin d. documented in this encounter Plan of Treatment Upcoming Encounters Date Type Department Care Team (Late st Contact Info) Description 01/13/2026 3:00 PM EDT Office Visit [facility] [address] [place] [address] Juanita Diaz PA [address] [place] [address] [place] [address] (work) documented as of this encounter Procedures Procedure Name Priority Date/Time Associated Diagnosis Comments XR DEXA AXIAL SKELETON 01/27/2024 8:07 AM EDT documented in this encounter Results * XR DEXA AXIAL SKELETON (01/27/2024 8:07 AM EDT) Anatomical Region Laterality Modality Other 01/27/2024 8:07 AM EDT Narrative 01/27/2024 8:09 AM EDT [address] [address] XRay Report Signed Patient: FRITZ GREEN MR#: [id number] : 1970 Acct:[id number] Age/Sex: 53 / F ADM Date: 01/27/24 Loc: MAMMO Attending Dr: Uri South D.O. Ordering Physician: Uri South D.O. Date of Service: 01/27/24 Procedure(s): XR DEXA axial skeleton Accession Number(s): [id number] cc: MERLE WEEKS ; Uri South D.O. [address] [id number] Patient Name: FRITZ GREEN MRN: [id number] date: 1970 Sex: F Assigned Patient [facility] Accession/Order Number: [id number] Exam Date: 01/27/2024 07:48 Report Date: 01/27/2024 [...] M.D. Signed By: 01/27/24808 DD/ 6 TD/TT: Securities Teller: Procedure Note Radiology, Radiologist, MD - 01/27/2024 [place] [address] XRay Report Signed Patient: FRITZ GREEN MMR#: [id number] : 1970Acct:[id number] Age/Sex: 53 / FADM Date: 01/27/24 Loc: MAMMO Attending Dr: Uri South D.O. Ordering Physician: Uri South D.O. Date of Service: 01/27/24 Procedure(s): XR DEXA axial skeleton Accession Number(s): [id number] cc: MERLE WEEKS ; Uri South D.O. [address] [place] [id number] Patient Name: FRITZ GREEN MRN: [id number] date: 1970 Sex: F Assigned Patient Location: [facility] Current Patient Location: [facility] Accession/Order Number: [id number] Exam Date: 01/27/2024 07:48 Report Date: 01/27/2024 08:07 At the request of: URI SOUTH Procedure: XR DEXA axial skeleton EXAMINATION: XR DEXA axial skeleton, 01/27/2024 7:48 AM EDT HISTORY: Osteoporosis COMPARISON: 2019 TECHNIQUE: Dual-energy X-ray absorptiometry (DEXA) bone density study performed for the axial skeleton. HISTORY: Osteoporosis FINDINGS: Bone mineral density AP spine L1-L4 measures 1.377 g/sq cm. T score 1.6.WHO classification: Normal. 3.5% reduction from the prior exam Lowest bone mineral densities in the left femoral neck measuring 0.865g/sq cm. T score -1.2. WHO classification: Osteopenia XR/XR DEXA axial skeleton IMPRESSION: Physiologic reduction in bone mineral density from 2020 Osteopenia. Moderate fracture risk Electronically authenticated by: TAISHA MANRIQUEZ Date: 01/27/2024 08:07 Dictated By: Taisha Manriquez M.D. Signed By:01/27/2409 DD/ 6 TD/TT: Securities Teller: us Uri Akosua DO [facility] Final Result documented in this encounter Visit Diagnoses Not on filedocumented in this encounter Care Teams Rug Measurer Relationship Specialty Start Date End Date Merle Weeks MD [address] [place] [phone] Referring Physician Family Medicine 08/06/23 documented as of this encounter
--- OUTSIDE RECORDS SUMMARY | 2025-01-28 16:26 | XMS_ITS | CCD ---
Author Organization [facility] Care Team Providers Care Anaesthesiologist Name Role Phone MERLE FRANCO Admitting Unavailable [...] e KARASIK ., DR CORREIA Attending Unavailcoleen FRANCO, MERLE Primary Care Unavailable KARASIK ., DR CORREIA Consulting Unavailabl e CIERA, DR NIGEL Zaldivar Consulting Unavailable KARASIK ., DR CORREIA Admitting Unavailabl e KARASIK ., DR CORREIA Attending Unavailabl e [place], [facility] Primary Care Unavailable KARASIK ., DR CORREIA Consulting Unavailcoleen Franco MD, Merle Unavailable JUANITA STEARNS Attending Unavailable JUANITA STEARNS Attending Unavailable Medications Current Medications Medication Drug Class(es) Dates Sig (Normalized) Sig (Original) cephalexin 500 mg oral capsule (3 sources) Cephalosporin Antibacterial Start: 01-05-2025 End: 01-12-2025 [...] 01/12/2025 Active lisinopril 10 mg oral tablet (7 sources) Angiotensin Converting Enzyme Inhibitor lisinopril 10 MG tablet 1 (one) time each day at the same time Active Completed/Discontinued Medications Medication Drug Class(es) Dates Sig (Normalized) Sig (Original) ciprofloxacin 500 mg oral tablet (3 sources) Quinolone Antimicrobial Start: 01-06-2025 End: 01-13-2025 take 1 tablet by mouth in the morning ciprofloxacin (Cipro) 500 MG tablet Indications: Urinary Tract Infection Take 1 tablet (500 mg) by mouth in the morning and 1 tablet (500 mg) before bedtime. Do all this for 7 days. 14 tablet 01/06/2025 01/13/2025 Problems Active Problems Problem Classification Problem Date Documented Date Episodic/Chronic Genitourinary symptoms and ill-defined conditions (2 sources) Blood in urine; Translations: [Hematuria, unspecified] 01-05-2025 Episodic Immunizations and screening for infectious disease (2 sources) Encounter for screening for human papillomavirus (HPV); Translations: [Encounter for immunization] Onset: 05-01-2022 Episodic Other nervous system disorders (7 sources) Carpal tunnel syndrome of left wrist; Translations: [Carpal tunnel syndrome, left upper limb] Onset: 08-05-2023 08-05-2023 Chronic Other nervous system disorders (7 sources) Carpal tunnel syndrome of right wrist; Translations: [Carpal tunnel syndrome, right upper limb] Onset: 08-05-2023 08-05-2023 Chronic Other screening for suspected conditions (not mental disorders or infectious disease) (10 sources) Encounter for screening mammogram for malignant neoplasm of breast; Translations: [Encounter for screening for malignant neoplasm of cervix] Onset: 08-15-2022 Episodic Urinary tract infections (2 sources) Urinary tract infectious disease; Translations: [Urinary tract infection, site not specified] 01-13-2025 Episodic Past or Other Problems Problem Classification [...] Range Facility Urinalysis macro (dipstick) panel (U)on 01-13-2025 Bilirubin, UA Negative Negative - 4(70) +++ mg/dL [facility] Blood, UA Positive Negative - 50 Robert/mcL [facility] Comment on above: small Clarity, UA Clear [facility] re Color, UA Yellow [facility] e Glucose, UA Negative Negative - 1999(110) ++++ mg/dL [facility] Interpretation and review of laboratory results Abnormal [facility] Ketones, UA Negative Negative - 160(16) ++++ mg/dL [facility] Leukocytes, UA Negative Negative - 500+++ Chad/mcL [facility] Nitrite, UA Negative Negative - Positive [facility] pH, UA 6 5 - 9 [facility] e Protein, UA Negative Negative - 1999(20) ++++ mg/dL [facility] Spec Grav, UA 1.01 1 - 1.03 [facility] Urobilinogen, UA 0.2 0.2 - 12 mg/dL [facility] No Panel Informationon 01-06 STAPHYLOCOCCUS EPIDERMIDIS, HAEMOLYTICUS, LUGDUNENSIS, SAPROPHYTICUS (URINA 0 [facility] STAPHYLOCOCCUS EPIDERMIDIS, HAEMOLYTICUS, LUGDUNENSIS, SAPROPHYTICUS (URINA Not detected [facility] URINARY TRACT INFECTION (HTR X)on 01-06-2025 ACINETOBACTER BAUMANII 0 [facility] ACINETOBACTER BAUMANII Not detected [facility] LORA ALBICANS, PARAPSILOSIS, TROPICALIS 0 [facility] LORA ALBICANS, PARAPSILOSIS, TROPICALIS Not detected [facility]ATA [facility] L[facility] GLABRATA Not detected [facility] ealthcare LORA KRUSEI 0 [facility] L[facility]A KRUSEI Not detected [facility] CITROBACTER FREUNDII 0 [facility] CITROBACTER FREUNDII Not detected [facility] ENTEROBACTER AEROGENES, CLOACAE 0 [facility] re ENTEROBACTER AEROGENES, CLOACAE Not detected [facility] re ENTEROCOCCUS FAECALIS, FAECIUM 0 [facility] e ENTEROCOCCUS FAECALIS, FAECIUM Not detected [facility] e ESCHERICHIA COLI 23.338 Abnormal [facility] ESCHERICHIA COLI Detected Abnormal [facility] Interpretation and review of laboratory results Abnormal [facility] KLEBSIELLA PNEUMONIAE, OXYTOCA 0 [facility] KLEBSIELLA PNEUMONIAE, OXYTOCA Not detected [facility] are MORGANELLA MORGANII 0 [facility] MORGANELLA MORGANII Not detected [facility] PROTEUS MIRABILIS, VULGARIS 0 [facility] PROTEUS MIRABILIS, VULGARIS Not detected [facility] PSEUDOMONAS AERUGINOSA 0 [facility] PSEUDOMONAS AERUGINOSA Not detected [facility] SERRATIA MARCESCENS 0 [facility] SERRATIA MARCESCENS Not detected [facility] STAPHYLOCOCCUS AUREUS 0 [facility] STAPHYLOCOCCUS AUREUS Not detected [facility] STREPTOCOCCUS AGALACTIAE (GROUP B STREP) 0 [facility] STREPTOCOCCUS AGALACTIAE (GROUP B STREP) Not detected [facility] STREPTOCOCCUS PYOGENES (GROUP A STREP) 0 [facility] STREPTOCOCCUS PYOGENES (GROUP A STREP) Not detected [facility] Urinalysis macro (dipstick) panel (U)on 01-05-2025 Bilirubin, UA Negative Negative - 4(70) +++ mg/dL [facility] Blood, UA Positive Negative - 50 Robert/mcL [facility] Comment on above: moderate Clarity, UA Clear [facility] re Color, UA Yellow [facility] e Glucose, UA Negative Negative - 1999(110) ++++ mg/dL [facility] Interpretation and review of laboratory results Abnormal [facility] Ketones, UA Negative Negative - 160(16) ++++ mg/dL [facility] Leukocytes, UA Negative Negative - 500+++ Chad/mcL [facility] Nitrite, UA Negative Negative - Positive [facility] pH, UA 6 5 - 9 [facility] e Protein, UA Negative Negative - 1999(20) ++++ mg/dL [facility] Spec Grav, UA 1.03 1 - 1.03 [facility] Urobilinogen, UA 0.2 0.2 - 12 mg/dL [facility] Cytology Cervical or vaginal smear or scraping studyon 01-01-2024 [facility] e PAP ACOG PANEL 2: 30 to 65on 08-23-2022 . . Normal [facility] Comment on above: Result Comment: Perf ormed at: BA Performed By: #### [id number] #### [facility] [address] [place] [address] Dr. Edi Muniz Age Gdln ACOG Testing 30-65 [facility] Comment on above: Performed By: #### [id number] #### [facility] [address] [place] [address] Dr. Edi Muniz DIAGNOSIS: Comment Normal [facility] Comment on above: Result Comment: NEGA TIVE FOR INTRAEPITHELIAL LESION OR MALIGNANCY. Performed at: BA Performed By: #### [id number] #### [facility] [address] [place] [address] Dr. Edi Muniz HPV Aptima Negative Normal Negative [facility] Comment on above: Result Comment: This nucleic acid amplification test detects fourteen high-risk HPV types (16,18,31,33,35,39,45,51,52,56,58,59,66,68) without differentiation. Performed at: =G Performed By: #### [id number] #### [facility] [address] [address] [address] Edi Muniz HPV Genotype Reflex Comment Normal [facility] Comment on above: Result Comment: Crit eria not met, HPV Genotype not performed. Performed at: BA Performed By: #### [id number] #### [facility] [address] [place] [address] Dr. Edi Muniz Methodology: Comment [facility] Comment on above: Result Comment: This liquid based ThinPrep(R) pap test was screened with the use of an image guided system. Performed at: WB Performed By: #### [id number] #### [facility] [address] [place] [address] Dr. Edi Muniz Note: Comment Normal [facility] Comment on above: Result Comment: The Pap smear is a screening test designed to aid in the detection of premalignant and malignant conditions of the uterine cervix. It is not a diagnostic procedure and should not be used as the sole means of detecting cervical cancer. Both false-positive and false-negative reports do occur. . Performed at: WB Performed By: #### [id number] #### [facility] [address] [address] [address] Edi Muniz Performed by: Comment Normal [facility] Comment on above: Result Comment: Zuhair Richards, Manager Inventory Control (ASCP) Performed at: BA Performed By: #### [id number] #### [facility] [address] [address] [address] Edi Muniz Specimen adequacy: Comment Normal [facility] Comment on above: Result Comment: Sati sfactory for evaluation. No endocervical component is identified. Performed at: BA Performed By: #### [id number] #### [facility] [address] [place] [address] Dr. Edi Muniz MG MAMM SCREEN 3D WATSON CADon 08-21-2022 MG MAMM SCREEN 3D WATSON CAD Patient: CHANTE GREEN Exam Date: 08/21/2022 : 1970 Gender:F Ordering : DR BREN MELLO . Admission #: [id number] Family : Order #: [id number] CLICK HERE TO VIEW EXAM RADIOLOGY REPORT [...] Treatments None Family Cancers None LOCATION: [facility] BREAST COMPOSITION: Scattered areas fibroglandular density. FINDINGS: [...] Klein M.D. on 08/23/2022 at 08:32 Normal [facility] CT HEAD WO CONon 04-27-2022 CT [...] by: MELANIE BAEZ Date: 2022-04-27 20:34 Normal [facility] XR KNEE RT 4V or >on [...] by: LAINEY MUNGUIA Date: 2021-12-22 16:55 Normal [facility] Vital Signs Date Time Vital Sign Value Performing Clinician Kike hernandez 01-05-2025 15:22-0400 Body mass index (BMI) [Ratio] 31.46 kg/m2 Juanita GUAJARDO Work Phone: [facility] 01-05-2025 15:22-0400 Body weight 78.02 kg Juanita GUAJARDO Work Phone: [facility] 01-05-2025 15:22-0400 Diastolic blood pressure 82 mm[Hg] Juanita GUAJARDO Work Phone: [facility] Healthcare 01-05-2025 15:22-0400 Systolic blood pressure 130 mm[Hg] Juanita GUAJARDO Work Phone: [facility] Encounters Encounter Date Encounter Type Care Provider Facility Start: 01-13-2025 End: 01-13-2025 Office outpatient visit 15 minutes Juanita GUAJARDO Work Phone: [facility] Comment on above: Urinary tract infect ion with hematuria, site unspecified Start: 01-13-2025 End: 01-13-2025 ambulatory JUANITA STEARNS Not Available Start: 01-13-2025 End: 01-13-2025 Bamboo flowsheet Juanita GUAJARDO Work Phone: [facility] Start: 01-13-2025 End: 01-13-2025 Bamboo flowsheet Juanita GUAJARDO Work Phone: [facility] Start: 01-05-2025 End: 01-05-2025 Patient encounter procedure Juanita GUAJARDO Work Phone: [facility] Work Phone: Start: 01-05-2025 End: 01-05-2025 Periodic preventive med est patient 40-64yrs Juanita GUAJARDO Work Phone: [facility] Comment on above: Well woman exam with routine gynecological exam; Breast cancer screening by mammogram; Hematuria, unspecified type Start: 01-05-2025 End: 01-05-2025 ambulatory JUANITA STEARNS Not Available Start: 01-05-2025 End: 01-05-2025 Bamboo flowsheet Juanita GUAJARDO Work Phone: [facility] Start: 01-05-2025 End: 01-06-2025 Bamboo flowsheet Juanita GUAJARDO Work Phone: [facility] Start: 01-05-2025 End: 01-06-2025 External Result Encounter Juanita GUAJARDO Work Phone: [facility] External Department Unsolicited Start: 08-21-2022 End: 08-22-[address] BREN MELLO . Facility:[facility] Start: 08-15-2022 End: 08-15-[address] BREN MELLO . Facility:[facility] Start: 04-27-2022 End: 04-27-2022 ambulatory MERLE FRANCO Facility:[facility] Start: 12-29-2021 End: 03-03-2022 ambulatory MERLE FRANCO Facility:[facility] Start: 12-22-2021 End: 12-23-2021 ambulatory MERLE FRANCO Facility: Procedures Date Procedure Procedure Detail Performing Clinician Start: 01-13-2025 Urnls dip stick/tabl et rgnt non-auto w/o micrscp Juanita GUAJARDO Work Phone: Start: 01-05-2025 URINARY TRACT INFECT ION (HTRX) Juanita GUAJARDO Work Phone: Start: 01-05-2025 Urnls dip stick/tabl et rgnt non-auto w/o micrscp Juanita GUAJARDO Work Phone: Start: 01-27-2024 Mammography Juanita GUAJARDO Work Phone: Start: 01-01-2024 Microscopic observat ion [Identifier] in Cervix by Cyto stain Juanita GUAJARDO Work Phone: Start: 01-01-2024 Cytp cerv/vag auto t hin layer prep mnl screen [facility] Nurse Start: 08-15-2022 Microscopic observat ion [Identifier] in Cervix by Cyto stain Juanita GUAJARDO Work Phone: Plan of Treatment Date Care Activity Detail Author Start: 08-15-2027 Screening for malignant neoplasm of cervix [facility] Start: 12-31-2026 Screening for malignant neoplasm of cervix Pap Smear [facility] Start: 01-13-2026 End: 01-13-2026 Patient encounter procedure 01/13/2026 3:00 PM EDT Office Visit [facility] [address] [place] [phone] Juanita Steanrs PA [address] [place] [address] [facility] Start: 04-19-2025 Influenza vaccination Influenz a Vaccine (Season Ended) [facility] Start: 01-26-2025 Screening for malignant neoplasm of breast Mammogram [facility] Start: 01-13-2025 End: 01-13-2025 Patient encounter procedure [facility] Comment on above: Arrived Start: 01-05-2025 End: 01-05-2025 Patient encounter procedure 01/05/2025 3:00 PM EDT Office Visit [facility] [address] [place] [phone] Juanita Stearns PA [address] [place] [address] Arrived [facility] Comment on above: Arrived Start: 01-05-2025 End: 03-07-2026 MG Breast - bilateral Screening Bilateral screening mammogram Imaging Routine Breast cancer screening by mammogram Expected: 01/05/2025, Expires: 03/07/2026 [facility] Work Phone: Comment on above: Expected: 01/05/2025 , Expires: 03/07/2026 Start: 1970 Screening for malignant neoplasm of colon [facility] Bacteria identified in Urine by Culture Urine culture Microbiology Routine Hematuria, unspecified type Ordered: 01/05/2025 [facility] Comment on above: Ordered: 01/05/2025 Bacteria identified in Urine by Culture Urine culture Microbiology Routine Urinary tract infection with hematuria, site unspecified Ordered: 01/13/2025 [facility] Work Phone: Comment on above: Ordered: 01/13/2025 THIN PREP TIS PAP AN D HR HPV DNA THIN PREP TIS PAP AND HR HPV DNA Pathology and Cytology Routine Well woman exam with routine gynecological exam Ordered: 01/05/2025 [facility] Comment on above: Ordered: 01/05/2025 Immunizations Immunization Date Immunization Notes Care Provider Fa cility 06-22-2022 SARS-COV-2 (COVID-19 ) vaccine, mRNA, spike protein, LNP, bivalent, preservative free, 30 mcg/0.3 mL dose, kirill-sucrose formulation Juanita GUAJARDO Work Phone: [facility] 06-21-2022 Influenza, Seasonal, Quadrivalent, Adjuvanted Juanita GUAJARDO Work Phone: [facility] 06-21-2022 influenza virus vacc ine, unspecified formulation Juanita Stearns PA Work Phone: [facility] 04-27-2022 diphtheria, tetanus toxoids and pertussis vaccine Juanita [place] C[place] PA Work Phone: [facility] 05-28-2021 influenza, injectabl e, quadrivalent, preservative free Juanita Stearns PA Work Phone: [facility] 05-15-2020 Influenza, injectabl e, Madin [place] Canine Kidney, quadrivalent with preservative Juanita [place] PA Work Phone: [facility] 06-11-2019 influenza, injectabl e, quadrivalent, preservative free Juanita Stearns PA Work Phone: [facility] 06-02-2019 influenza virus vacc ine, unspecified formulation Juanita GUAJARDO Work Phone: [facility] 05-30-2018 Influenza, injectabl e, Madin [place] Canine Kidney, preservative free, quadrivalent Juanita [place] C[place] PA Work Phone: [facility] Payers Date Payer Category Payer Private Health [facility] [id number] 1970 Unknown [id number] 1970 Unknown [id number] 1970 Unknown [id number] 1970 Unknown [id number] 1970 Unknown [id number] 1970 Unknown [id number] 1970 Unknown [id number] 1959 Private Health Insurance [id number] 1959 Private Health Insurance [id number] Social History Date Type Detail Facility Start: 08-05-2023 Tobacco smoking stat [facility] Never smoked tobacco [facility] Start: 08-05-2023 Tobacco use and exposure Smoke less tobacco non-user [facility] Start: 01-01-2024 End: 01-13-2025 Alcoholic beverage intake Lifetime non-drinker (finding) [facility] Start: 01-01-2024 End: 01-05-2025 [facility] of [facility] function [facility] Start: 01-01-2024 End: 01-05-2025 Tobacco use panel [facility] Start: 1970 Sex assigned at Not on file [facility] History of Present illness Narrative 01-13-2025 BENNETT Peña - 01/13/2025 3:20 PM EDT Note Date & Type Note Facility 01-13-2025 History of Presen t illness Narrative Reason for Appointment: Patient ID: Chante Green is a 54 y.o. female who presents for Follow-up Patient presents today for Follow up appointment to discuss results. MEDICATIONS Current Outpatient Medications Medication Instructions lisinopril 10 MG tablet Every 24 hours [...] Date Factor V Leiden, prothrombin gene mutation ([facility]) Sleep apnea Social History Tobacco Use Smoking [...] Negative. Endocrine: Negative. Allergic/Immunologic: Negative. OBJECTIVE Objective: OBGyn Exam Vitals: Estimated body mass index is 31.46 kg/m as calculated from the following: Height as of 05/10/22: 5' 2 . Weight as of 01/05/25: 172 lb. BP: No LMP recorded. Patient has had a hysterectomy. ASSESSMENT & PLAN ICD-10-CM 1. Urinary tract infection with hematuria, site unspecified N39.0 Urine culture R31.9 POCT urinalysis dipstick manually resulted Patient presents for uti follow up, pt doing well, ua has improved will resend culture today. Pt completed course of cipro. She had been asymptomatic with large blood and leuks. Improved today. Pt to follow up as needed. Documented by BENNETT Peña on behalf of: BENNETT Peña documented in this encounter [facility] History of Present illness Narrative 01-05-2025 [...] Leiden, prothrombin gene mutation (CMS/HCC) Sleep apnea Social History Tobacco Use Smoking [...] nursing note reviewed. Exam conducted with a manager clinical applications present. Vitals: Estimated body mass index is [...] type documented in this encounter [facility] Evaluation note Note Date & Type Note Facility Evaluation note Diagnosis Urinary tract infection with hematuria, site unspecified documented in this encounter [facility] Summary Purpose Family History No Family History Records FoundNo Family History Records Found Advance Directives No Advanced Directives Records FoundNo Advanced Directives Records Found Additional Source Comments INFORMATION SOURCE (unrecogn ized section and content) DATE CREATED AUTHOR 10/13/2022 [facility] DATE CREATED AUTHOR AUTHOR'S ORGANIZ ATION 01/16/2025 [facility] EPIC Care Teams (unrecognized sec tion and content) Anaesthesiologist Relationship Specialty Start Date End Date Merle Franco MD [address] [place] [address] Referring Physician Family Medicine 08/06/23 Anaesthesiologist Relationship Specialty Start Date End Date Merle Franco MD [address] [place] [address] Referring Physician Family Medicine 08/06/23 Anaesthesiologist Relationship Specialty Start Date End Date Merle Franco MD [address] [place] [id number] Referring Physician Family Medicine 08/06/23 Anaesthesiologist Relationship Specialty [place] [address] [place] [id number] Referring Physician Family Medicine 08/06/23 Reason for Visit (unrecogniz ed section and content) Reason Comments Well Women Visit Reason Comments Follow-up FOR RECORDS PERTAINING TO PATIENTS WHO ARE [...] BE BASED ON THE PRIMARY CLINICAL RECORDS. [facility] [employer] provides no warranty or guarantee of the accuracy or completeness of information in this document.
== END 2025-01-28 16:09 | disposition home or self-care (01) ==
LOC: MAMMO 16:08
PROVIDERS: PCP Internal Medicine; Visit Provider Obstetrics & Gynecology
DX: Z12.31 Encounter for screening mammogram for malignant neoplasm of breast (principal)
CPT/HCPCS: 77063; 77067